=== PATIENT | female | born 1960 | race Caucasian/White ===

== ENCOUNTER 2021-07-02 16:14 | Emergency (ER) | payer MEDICAID, SELFPAY ==
--- NOTE | ~2021-07-02 | XR_ITS ---
EXAMINATION: XR WRIST, LEFT CLINICAL INFORMATION: Postreduction COMPARISON: Images earlier this evening TECHNIQUE: PA, lateral, and oblique views of the left wrist. FINDINGS: Patient is now in a Splint which obscures fine bony detail however there is improved alignment to the previously noted impacted distal dorsal angulated radial fracture when compared to earlier this evening. The amount of distal dorsal angulation has significantly improved. Ulnar styloid fracture is noted. XR/XR wrist LT 2V IMPRESSION: Significantly improved angulation to the comminuted distal radial fracture with mild placed on the styloid fracture noted.
--- NOTE | ~2021-07-02 | XR_ITS ---
EXAMINATION: XR WRIST, LEFT CLINICAL INFORMATION: Fall with left wrist swelling and tenderness COMPARISON: None TECHNIQUE: PA, lateral, and oblique views of the left wrist. FINDINGS: Comminuted impacted distal radial fracture is seen likely with a subtle intra-articular extension. There is distal dorsal angulation to this fracture. Carpal bones grossly intact. Subtle nondisplaced ulnar styloid fracture would be difficult to exclude on these obliquities. Associated soft tissue swelling. XR/XR wrist LT min 3V IMPRESSION: Comminuted impacted distal dorsal angulated distal radial metaphyseal fracture. Subtle intra-articular extension would be difficult to exclude on these obliquities.
[2021-07-02 16:42] VITALS: BP 133/66; PULSE 61; RESP 18; TEMP 36.6; O2SAT 97; BMI 37.0
[2021-07-02] MEDS: oxyCODONE HCl Immed Release 5 MG TABLET PO (17:19)
[2021-07-02] MEDS: Acetaminophen 325 MG TABLET 975 MG PO (17:19)
[2021-07-02] MEDS: Lidocaine HCl 2 % MPF 5 ML VIAL 10 ML INFILTRATI (17:47)
--- NOTE | 2021-07-02 17:48 | ED.FALL ---
HPI - Fall General Chief Complaint: Fall Stated Complaint: fall Time Seen by Provider: 07/02/21 16:47 Source: patient Mode of arrival: ambulatory Limitations: language barrier (The patient speaks Macedonian but her 1st language is [place]ovan, she was able to give a history and her [id number]'s also here who speaks Macedonian) History of Present Illness HPI Narrative: 60-year-old female who presents emergency department for evaluation of a trip and fall on outstretched left arm. The patient states that she tripped and fell forward injuring her left arm. She denied any other injury. She is currently complaining of severe pain in her left wrist, the pain is a constant sharp dull pain which is 10/10. Related Data Allergies Allergy/AdvReac Type Severity Reaction Status Date / Time apple [APPLE] Allergy Severe ANAPHYLAXIS Verified 07/02/21 17:18 [place] And Derivatives Allergy Severe ANAPHYLAXIS Verified 07/02/21 17:18 [CITRUS AND DERIVATIVES] fructose [FRUCTOSE] Allergy Severe ANAPHYLAXIS Verified 07/02/21 17:18 Penicillins [PENICILLINS] Allergy Intermediate RASH Verified 07/02/21 17:18 tuberculin, purified protein Allergy Intermediate RASH,BLISTE Verified 07/02/21 17:18 deriva RS [TUBERCULIN,PURIF.PROT.DERIV.] penicillin V Allergy Unknown Rash Verified 07/02/21 17:18 TB test Allergy Unknown Swelling Uncoded 07/02/21 17:18 Review of Systems Review of Systems: Yes all other systems are reviewed and are negative [facility] Past Medical History [facility] Narrative: Social history: Patient denies tobacco use. She denies alcohol use. She denies drug use. Medical History Hemorrhoids Hypercholesteremia Hypertension Surgical History H/O: hysterectomy Social History Social History Advance Directives: No Advance Directives Information Provided: No Physical Exam Vital Signs: Vital Signs: Last Vital Signs Temp 98 F 07/02/21 16:42 Pulse 61 07/02/21 16:42 Resp 18 07/02/21 16:42 BP 133/66 07/02/21 16:42 Pulse Ox 97 07/02/21 16:42 Body Mass Index 37.0 Const: General: cooperative, healthy appearing and other (In distress secondary to left wrist pain) Orientation/consciousness: oriented to person and oriented to place HENMT: Head: Yes normal to inspection, Yes normocephalic and Yes atraumatic Eyes: General: appearance normal, both eyes and all related structures Chest: Chest palpation & inspection: normal inspection of the chest and normal palpation of entire chest wall Cardio: Rate: regular rate Rhythm: regular rhythm Heart sounds: S1 normal heart sound present, S2 normal heart sound present and no murmurs GI: Inspection: Yes normal to inspection Palpation (GI): Soft to palpation and nontender Auscultation: normal bowel sounds Back/Spine/Pelvis: Other: No tenderness Skin: General skin exam: no rashes or lesions noted Neuro: General: oriented to person and oriented to place Cranial nerves: Yes CN's II-XII intact bilaterally Extrem: Other: Patient has an obvious deformity and soft tissue swelling with ecchymosis of the left wrist, the patient has normal light touch, good capillary refill, she has minimal movement of her finger secondary to pain Psych: Appearance: grossly normal Course Course Course Narrative: 60-year-old female who presents emergency room for evaluation of a fall on an outstretched left wrist with obvious deformity of the wrist. Patient had no other findings on her examination. The x-ray does reveal a comminuted impacted distal dorsal angulated distal radial fracture. I did discuss the patient's presentation with the orthopedic physician child welfare assistant, Celia Vivar. She was able to view the films and recommended that the fracture be reduced. At the end of my shift, the patient's care was turned over to my colleague, Dr. Flanagan who will reduce the fracture. Discharge Plan Discharge Clinical Impression: Distal radial fracture Qualifiers: Encounter type: initial encounter Fracture type: closed Laterality: left Patient Disposition: Home, Self-Care Instructions: Wrist Fracture in Adults (ED), Splint Care (ED) Additional Instructions: You have a broken bone of your wrist (comminuted fracture of the left distal radius). This was reduced in the emergency department in your placed in a splint. Keep the splint on until you are re-evaluated by the orthopedic group. Take extra-strength Tylenol 500 mg pills, 2 pills every 4-6 hours as needed for pain. For pain not relieved by Tylenol take oxycodone 5 mg pills, 1 pill every 4-6 hours as needed for pain. This medication can be addicting, if your concerned about addiction, ask that a pharmacist for less pills. This medication will make you sleepy do not drive or work while taking this medication. This medication can make you confused and constipated. Call the orthopedic group to make a follow-up appointment within 1 week Please return to the emergency department if your symptoms get worse or if you develop any symptoms that are concerning to you. Referrals: Nino Melchor MD [Physician] - 1 week
[2021-07-02 18:13] VITALS: RESP 17
[2021-07-02] MEDS: Morphine Sulfate 4 MG/ML CARTRIDGE IM (18:13)
--- NOTE | 2021-07-02 19:08 | ED.FALL ---
HPI - Fall General Chief Complaint: Fall Stated Complaint: fall Time Seen by Provider: 07/02/21 16:47 Source: patient Mode of arrival: ambulatory Related Data Previous Rx's Medication Instructions Recorded oxycodone 5 mg tablet 5 mg PO Q4H PRN #14 tab 07/02/21 Allergies Allergy/AdvReac Type Severity Reaction Status Date / Time apple [APPLE] Allergy Severe ANAPHYLAXIS Verified 07/02/21 17:18 [place] And Derivatives Allergy Severe ANAPHYLAXIS Verified 07/02/21 17:18 [CITRUS AND DERIVATIVES] fructose [FRUCTOSE] Allergy Severe ANAPHYLAXIS Verified 07/02/21 17:18 Penicillins [PENICILLINS] Allergy Intermediate RASH Verified 07/02/21 17:18 tuberculin, purified protein Allergy Intermediate RASH,BLISTE Verified 07/02/21 17:18 deriva RS [TUBERCULIN,PURIF.PROT.DERIV.] penicillin V Allergy Unknown Rash Verified 07/02/21 17:18 TB test Allergy Unknown Swelling Uncoded 07/02/21 17:18 PMFSH Past Medical History Medical History Hemorrhoids Hypercholesteremia Hypertension Surgical History H/O: hysterectomy Social History Social History Advance Directives: No Advance Directives Information Provided: No Physical Exam Vital Signs: Vital Signs: Last Vital Signs Temp 98 F 07/02/21 16:42 Pulse 61 07/02/21 16:42 Resp 17 07/02/21 18:13 BP 133/66 07/02/21 16:42 Pulse Ox 97 07/02/21 16:42 Body Mass Index 37.0 Procedures Orthopedic Fracture Reduction Fracture #1: Time Out Performed: Yes Side: left Fracture Reduction Location: radius Analgesia: hematoma block Technique: finger traps Post Reduction X-rays Demonstrate: anatomical reduction Post-reduction neuro exam: intact Post-reduction vascular exam: intact Splint Applied: Yes Patient Tolerated Procedure: well Discharge Plan Discharge Clinical Impression: Distal radial fracture Qualifiers: Encounter type: initial encounter Fracture type: closed Fracture morphology: Colles' Laterality: left Qualified Code(s): S52.532A - Colles' fracture of left radius, initial encounter for closed fracture Patient Disposition: Home, Self-Care Instructions: Wrist Fracture in Adults (ED), Splint Care (ED) Additional Instructions: You have a broken bone of your wrist (comminuted fracture of the left distal radius). This was reduced in the emergency department in your placed in a splint. Keep the splint on until you are re-evaluated by the orthopedic group. Take extra-strength Tylenol 500 mg pills, 2 pills every 4-6 hours as needed for pain. For pain not relieved by Tylenol take oxycodone 5 mg pills, 1 pill every 4-6 hours as needed for pain. This medication can be addicting, if your concerned about addiction, ask that a pharmacist for less pills. This medication will make you sleepy do not drive or work while taking this medication. This medication can make you confused and constipated. Call the orthopedic group to make a follow-up appointment within 1 week Please return to the emergency department if your symptoms get worse or if you develop any symptoms that are concerning to you. Prescriptions: New oxycodone 5 mg tablet 5 mg PO Q4H PRN (Reason: pain) Qty: 14 RF: 0 Referrals: Nino Melchor MD [Physician] - 1 week
[2021-07-02 19:19] VITALS: BP 166/79; PULSE 85; RESP 17; O2SAT 96
== END 2021-07-02 19:23 | disposition home or self-care (01) ==
PROVIDERS: Emergency Provider Internal Medicine; PCP Internal Medicine
DX: S52.532A Colles' fracture of left radius, initial encounter for closed fracture (principal); M79.602 Pain in left arm; W01.0XXA Fall on same level from slipping, tripping and stumbling without subsequent striking against object, initial encounter; Y93.9 Activity, unspecified; Y92.9 Unspecified place or not applicable; Y99.9 Unspecified external cause status; Z79.899 Other long term (current) drug therapy
CPT/HCPCS: 29105; 73100; 73110; 96372; 99284; J2270

== ENCOUNTER → 2021-07-05 13:03 | Outpatient (BNVA) | payer MEDICAID, SELFPAY | PROVIDERS: PCP Internal Medicine; Visit Provider Physician Assistant | DX: S52.502A Unspecified fracture of the lower end of left radius, initial encounter for closed fracture (principal); W01.0XXA Fall on same level from slipping, tripping and stumbling without subsequent striking against object, initial encounter; Y93.01 Activity, walking, marching and hiking; Y92.9 Unspecified place or not applicable; Y99.8 Other external cause status; I10 Essential (primary) hypertension; E78.00 Pure hypercholesterolemia, unspecified; Z91.02 Food additives allergy status; Z88.0 Allergy status to penicillin; Z88.8 Allergy status to other drugs, medicaments and biological substances; Z91.018 Allergy to other foods | CPT/HCPCS: 99202 ==

== ENCOUNTER 2021-07-06 07:23 | Day surgery (SDC) | payer MEDICAID, SELFPAY ==
[2021-07-06] VITALS (8 sets, daily range): BP systolic 145–173; BP diastolic 71–80; PULSE 74–88; RESP 17–18; TEMP 36.1–36.5; O2SAT 92–98; BMI 37.0
--- NOTE | ~2021-07-06 | FL_ITS ---
EXAMINATION: XR FLUOROSCOPY WITH IMAGES CLINICAL INFORMATION: Fracture distal radius COMPARISON: Previous x-ray 07/02/2021 TECHNIQUE: Fluoroscopy performed by Piyush Fluoroscopy time: 50 seconds DAP: [id number] Images: 4 FINDINGS: Fluoroscopy guidance was provided for ORIF of left distal radius fracture. There is a volar plate and screws transfixing the fracture with improved anatomic alignment. FL/FL guidance in OR IMPRESSION: Fluoroscopic guidance for ORIF of left distal radius fracture.
--- NOTE | 2021-07-06 08:23 | HO.ANESPROP2 ---
HPI - Anesthesia Eval Consult details Narrative: 60-year-old obese female presenting for ORIF distal radius fracture PMFSH Active Problems Active Problems: All Active Problems (Updated 07/05/21 @ 20:59 by Henry Vivar PA-C) Distal radius fracture, left (Acute) Past Medical History Medical History Hemorrhoids Hypercholesteremia Hypertension Family History Family history of problems with anesthesia: No Surgical History Surgical History H/O: hysterectomy History of Problems with Anesthesia: No Social History Social History Alcohol intake: never Patient Tobacco Use Status: Never used Tobacco Use of substances other than those prescribed or required for medical reasons: No Have you been hit, kicked, punched, or otherwise hurt by someone within the past year? If so, by whom?: No Are you DNR?: No Advance Directives: No Advance Directives Information Provided: Yes Current occupation: right handed Meds Allergies Allergy/AdvReac Type Severity Reaction Status Date / Time apple [APPLE] Allergy Severe ANAPHYLAXIS Verified 07/06/21 07:56 [place] And Derivatives Allergy Severe ANAPHYLAXIS Verified 07/06/21 07:56 [CITRUS AND DERIVATIVES] fructose [FRUCTOSE] Allergy Severe ANAPHYLAXIS Verified 07/06/21 07:56 Penicillins [PENICILLINS] Allergy Intermediate RASH Verified 07/06/21 07:56 tuberculin, purified protein Allergy Intermediate RASH,BLISTE Verified 07/06/21 07:56 deriva RS [TUBERCULIN,PURIF.PROT.DERIV.] penicillin V Allergy Unknown Rash Verified 07/06/21 07:56 TB test Allergy Unknown Swelling Uncoded 07/06/21 07:56 Exam Exam Date and Time: July 06, [id number] Height,Weight and Vital Signs: Height 5 ft Weight 190 lb Last Vital Signs Temp 97.7 F 07/06/21 08:10 Pulse 77 07/06/21 08:10 Resp 18 07/06/21 08:10 BP 173/78 H 07/06/21 08:10 Pulse Ox 94 07/06/21 08:10 Airway Mallampati Class: III TM Dist: >3cm Neck ROM: Full Loose/Missing/Broken Teeth: No Assessment and Plan Assessment Anesthesia Assessment: Anesthesia Plan Discussed and Chart Reviewed Final Anesthetic Review Family History of Problems with Anesthesia: No History of Problems with Anesthesia: No NPO: Yes ASA Class: III Final Preanesthetic Review: No Changes in Pt Med Stat, Meds/Allgs Chart Reviewed, Consent Obtained/Reviewed and Anes Risks/Benef Reviewed Patient Risk: Intermediate Procedure Risk: Low Anesthetic Plan Anesthetic Plan: GA and Regional Block Disposition: Standard PACU
[2021-07-06] MEDS: Lactated Ringers 1,000 ML 50 ML IVCONT (08:30)
--- NOTE | 2021-07-06 10:00 | P.HPSUR_ITS ---
Pre-Procedural Eval Section A Date of Service: 07/06/21 The patient is an INPATIENT: No Changes since office visit: No Cold of Flu in the past 2 weeks, No New Medical Problems, No Changes in Medication and No Patient answered all questions The History & Physical has been completed within 30 days and I have reviewed it.: Yes Section B Chief Complaint: radial fx Allergies: Allergies Allergy/AdvReac Type Severity Reaction Status Date / Time apple [APPLE] Allergy Severe ANAPHYLAXIS Verified 07/06/21 07:56 [place] And Derivatives Allergy Severe ANAPHYLAXIS Verified 07/06/21 07:56 [CITRUS AND DERIVATIVES] fructose [FRUCTOSE] Allergy Severe ANAPHYLAXIS Verified 07/06/21 07:56 Penicillins [PENICILLINS] Allergy Intermediate RASH Verified 07/06/21 07:56 tuberculin, purified protein Allergy Intermediate RASH,BLISTE Verified 07/06/21 07:56 deriva RS [TUBERCULIN,PURIF.PROT.DERIV.] penicillin V Allergy Unknown Rash Verified 07/06/21 07:56 TB test Allergy Unknown Swelling Uncoded 07/06/21 07:56 Plan I have reviewed the history and physical and performed a pertinent physical examination on my patient. No changes have occurred unless specified.
--- NOTE | 2021-07-06 10:00 | P.OP_ITS ---
Operative Note Operative Note Date of Service: 07/06/21 Narrative: Operative Note Narrative: Preop diagnosis: 1. Left Distal radius fracture Postop diagnosis: Same Procedure: Left Distal radius fracture open reduction internal fixation Surgeon: Samantha Bourgeois MD Anesthesia: Mac plus regional block Findings: [ ] Implants: A 3 hole Accu Med volar locking plate, with [ ] 2.3 mm locking pegs/screws, and 3 3.5 mm cortical screws Tourniquet time: [ ] minutes EBL: 5.0 ml Specimen: None Drains: None Complications: None Disposition: Brought to the recovery room in stable condition Plan: Follow-up in 10-14 days for wound check, suture removal and postop radiographs The patient will be placed in either a short-arm cast or a volar wrist splint. Encouraged no lifting of anything heavier than a cell phone. Please encourage active and passive range of motion of the digits. Follow-up at 4-5 weeks postop for repeat radiographs. Indications: The patient is a 60 year old woman with a left distal radius fracture . The risks and benefits of operative treatment, including but not limited to risk of damage to blood vessels, nerves, tendons, infection, recurrence, persistent pain or numbness, incomplete resolution of preoperative symptoms, or need for further surgery were discussed with the patient and they wished to proceed with surgery. Procedure: Once consent was obtained patient was brought back to the operating suite and placed in the operating table in a supine position. A regional block was performed by the anesthesia team. Perioperative antibiotics and anesthesia was administered by the anesthesia team. A tourniquet was applied to the proximal aspect of the left upper extremity and the limb was prepped and draped in a standard surgical fashion. The limb was elevated exsanguinated with Esmarch bandage and the tourniquet inflated to 250 mm of mercury for a total tourniquet time of [ ] minutes. The FluoroScan was used throughout the case to assess our reduction, and facilitate implant placement. A gentle closed reduction was 1st performed on the patient's [ ] distal radius fracture. Was assessed radiographically before proceeding with the reduction internal fixation. I then made an 8 cm longitudinal incision over the distal aspect of the flexor carpi radialis tendon. The incision was made through the skin to the subcutaneous tissue using a 15. Blade. Then carefully dissected down to flexor carpi radialis tendon she tenotomy scissors. The FCR tendon sheath was then incised longitudinally using tenotomy scissors under direct visualization. The FCR tendon was then retracted ulnarly. I then made a longitudinal incision in the volar forearm fascia through the floor of FCR tendon sheath using tenotomy scissors under direct visualization. I identified the interval between the radial artery and the flexor tendons. This interval was developed further with my index finger, releasing some of the muscular fibers of the flexor pollicis longus. A dull weatlander retractor was then placed. I then created an ulnarly based flap of the pronator quadratus by releasing the radial and distal edges using a 15. Blade. A Vincent elevator was used to elevate the pronator quadratus from the volar surface of the distal radius. This then revealed to us our distal radius fracture. An open reduction was then performed on our distal radius fracture. I then placed a short [narrow] 3 hole Accu Med volar locking plate on the volar surface of the distal radius. I placed a single K-wire through the distal aspect of the plate and into the distal radius. This was assessed using fluoroscopic images. I was satisfied with the placement of our plate. I then placed [ ] 2.3 mm locking screws/pegs in the distal aspect of the plate and distal radius by 1st drilling bicortically with a 1.8 mm drill bit, measuring with a depth gauge, and placing the appropriate length locking screws/pegs. The placement of our plate and screws was then assessed again using fluoroscopic images. The once satisfied with the placement of the volar locking plate and screws on the distal aspect of the distal radius, the plate was then reduced to the shaft of the radius. I then placed 3 3.5 mm cortical screws to the pro ximal aspect of the plate and into the shaft of the radius. This was done by 1st drilling bicortically with a 2.8 mm drill bit, measuring with a depth gauge, and placing the appropriate length screw. Final radiographs were then obtained. The DRUJ was assessed and found to be stable on exam. I was satisfied with our reduction and placement of all implants. At this point the wound was irrigated with normal saline. The pronator quadratus was reduced back over the volar locking plate using some 3-0 Vicryl suture material. The tourniquet was then deflated and hemostasis was obtained with a brief period of local pressure and bipolar monopolar electrocautery. The subcutaneous layer was then reapproximated using some 4-0 Vicryl suture, and the skin edges were reapproximated using some 5 0 Prolene suture. The wound was then infiltrated with some 1% lidocaine with epinephrine postop pain control. A sterile dressing and a short dorsal splint allowing for active flexion and extension of the digits was applied. The patient appears to have tolerated the procedure well and with no complications. All digits were well vascularized conclusion of the case.
--- NOTE | 2021-07-06 12:11 | P.OP_ITS ---
Operative Note Operative Note Date of Service: 07/06/21 Narrative: Operative Note Narrative: Preop diagnosis: 1. Left Distal radius fracture Postop diagnosis: 1. Left distal radius fracture, three-part intra-articular Procedure: 1. Distal radius fracture open reduction internal fixation, three-part intra-articular Surgeon: Samantha Bourgeois MD Anesthesia: Mac plus regional block Findings: Comminuted intra-articular left distal radius fracture Implants: A 3 hole standard Accu Med volar locking plate, with five 2.3 mm locking pegs/screws, and 3 3.5 mm cortical screws Tourniquet time: 51 minutes EBL: 5.0 ml Specimen: None Drains: None Complications: None Disposition: Brought to the recovery room in stable condition Plan: Follow-up in 10-14 days for wound check, suture removal and postop radiographs The patient will be placed in a volar wrist splint. Encourage no lifting of anything heavier than a cell phone. Please encourage active and passive range of motion of the digits. Follow-up at 4-5 weeks postop for repeat radiographs. Indications: The patient is a 60 year old woman with a displaced left distal radius fracture . The risks and benefits of operative treatment, including but not limited to risk of damage to blood vessels, nerves, tendons, infection, recurrence, persistent pain or numbness, incomplete resolution of preoperative symptoms, or need for further surgery were discussed with the patient and they wished to proceed with surgery. Procedure: Once consent was obtained patient was brought back to the operating suite and placed in the operating table in a supine position. A regional block was performed by the anesthesia team. Perioperative antibiotics and anesthesia was administered by the anesthesia team. A tourniquet was applied to the proximal aspect of the left upper extremity and the limb was prepped and draped in a standard surgical fashion. The limb was elevated exsanguinated with Esmarch bandage and the tourniquet inflated to 250 mm of mercury for a total tourniquet time of 51 minutes. The FluoroScan was used throughout the case to assess our reduction, and facilitate implant placement. I made an 8 cm longitudinal incision over the distal aspect of the flexor carpi radialis tendon. The incision was made through the skin to the subcutaneous tissue using a 15. Blade. Then carefully dissected down to flexor carpi radialis tendon she tenotomy scissors. The FCR tendon sheath was then incised longitudinally using tenotomy scissors under direct visualization. The FCR tendon was then retracted ulnarly. I then made a longitudinal incision in the volar forearm fascia through the floor of FCR tendon sheath using tenotomy scissors under direct visualization. I identified the interval between the radial artery and the flexor tendons. This interval was developed further with my index finger, releasing some of the muscular fibers of the flexor pollicis longus. A dull weatlander retractor was then placed. I then created an ulnarly based flap of the pronator quadratus by r eleasing the radial and distal edges using a 15. Blade. A Vincent elevator was used to elevate the pronator quadratus from the volar surface of the distal radius. This then revealed to us our distal radius fracture. The fracture was comminuted and intra-articular. One volar fragment of the volar cortical surface was actually on edge 90? with its usual position. An open reduction was then performed on our distal radius fracture. I then placed a short standard 3 hole Accu Med volar locking plate on the volar surface of the distal radius. I placed a single K-wire through the distal aspect of the plate and into the distal radius. This was assessed using fluoroscopic images. I was satisfied with the placement of our plate. I then placed five 2.3 mm locking screws/pegs in the distal aspect of the plate and distal radius by 1st drilling bicortically with a 1.8 mm drill bit, measuring with a depth gauge, and placing the appropriate length locking screws/pegs. The placement of our plate and screws was then assessed again using fluoroscopic images. The once satisfied with the placement of the volar locking plate and screws on the distal aspect of the distal radius, the plate was then reduced to the shaft of the radius. I then placed 3 3.5 mm cortical screws to the proximal aspect of the plate and into the shaft of the radius. This was done by 1st drilling bicortically with a 2.8 mm drill bit, measuring with a depth gauge, and placing the appropriate length screw. Final radiographs were then obtained. The DRUJ was assessed and found to be stable on exam. I was satisfied with our reduction and placement of all implants. At this point the wound was irrigated with normal saline. The pronator quadratus was reduced back over the volar locking plate using some 3-0 Vicryl suture material. The tourniquet was then deflated and hemostasis was obtained with a brief period of local pressure and bipolar monopolar electrocautery. The subcutaneous layer was then reapproximated using some 4-0 Vicryl suture, and the skin edges were reapproximated using some 5 0 Prolene suture. The wound was then infiltrated with some 0.5% plain Marcaine postop pain control. A sterile dressing and a short dorsal splint allowing for active flexion and extension of the digits was applied. The patient appears to have tolerated the procedure well and with no complications. All digits were well vascularized conclusion of the case.
== END 2021-07-06 13:30 | disposition home or self-care (01) ==
PROVIDERS: PCP Internal Medicine; Visit Provider Orthopaedic Surgery
PROC: (CPT 25609; principal; 2021-07-06 08:50)
DX: S52.572A Other intraarticular fracture of lower end of left radius, initial encounter for closed fracture (principal); W01.0XXA Fall on same level from slipping, tripping and stumbling without subsequent striking against object, initial encounter; Y93.01 Activity, walking, marching and hiking; Y92.9 Unspecified place or not applicable; Y99.8 Other external cause status; I10 Essential (primary) hypertension; Z88.0 Allergy status to penicillin
CPT/HCPCS: 25609; C1713; C1769; J0690; J2370; J2405; J3010

== ENCOUNTER 2021-07-17 11:49 | Outpatient (REF) | payer MEDICAID, SELFPAY ==
--- NOTE | ~2021-07-17 | XR_ITS ---
EXAMINATION: XR WRIST, LEFT CLINICAL INFORMATION: Left wrist pain. COMPARISON: Left wrist radiographs dated 07/02/2021. TECHNIQUE: PA, lateral, and oblique views of the left wrist. FINDINGS: Interval placement of a volar stabilization plate and fixation screws at the distal radius. No acute hardware fracture. No perihardware lucency to suggest loosening or infection. Distal radial fracture in near anatomic alignment. Circumferential soft tissue swelling. XR/XR wrist LT min 3V IMPRESSION: Distal radial ORIF without evidence of hardware complication. Distal radial fracture in near anatomic alignment.
== END 2021-07-17 11:50 | disposition home or self-care (01) ==
LOC: HO.HOSX 11:49
PROVIDERS: Visit Provider Orthopaedic Surgery
DX: S52.502D Unspecified fracture of the lower end of left radius, subsequent encounter for closed fracture with routine healing (principal); M67.40 Ganglion, unspecified site; X58.XXXD Exposure to other specified factors, subsequent encounter
CPT/HCPCS: 73110; 99212

== ENCOUNTER 2021-08-09 08:41 | Outpatient (REF) | payer MEDICAID, SELFPAY ==
--- NOTE | ~2021-08-09 | XR_ITS ---
EXAMINATION: XR WRIST, LEFT CLINICAL INFORMATION: Left wrist pain. COMPARISON: Most recent left wrist radiograph dated 07/17/2021. TECHNIQUE: PA, lateral, and oblique views of the left wrist. FINDINGS: Volar stabilization plate with fixation screws at the distal radius. Redemonstration of a distal radial fracture in unchanged anatomic alignment. Minimal new bone/callus formation. No osseous erosion. No abnormal soft tissue calcification. XR/XR wrist LT min 3V IMPRESSION: Distal radial fracture in unchanged anatomic alignment with minimal new bone/callus formation. Associated ORIF without evidence of hardware complication.
== END 2021-08-09 08:42 | disposition home or self-care (01) ==
LOC: HO.HOSX 08:41
PROVIDERS: Visit Provider Orthopaedic Surgery
DX: S52.502D Unspecified fracture of the lower end of left radius, subsequent encounter for closed fracture with routine healing (principal)
CPT/HCPCS: 73110; 99212

== ENCOUNTER 2021-11-22 09:19 | Outpatient (REF) | payer OTHER, SELFPAY ==
--- NOTE | 2021-11-22 09:22 | EMG_ITS ---
This is a 61-year-old woman who fractured her left wrist in June and had surgery. She now has persistent numbness in the fingers of the left hand. PHYSICAL EXAMINATION: On examination, she has well-healed scar in the left volar aspect of the wrist. She has decreased sensation in median nerve distribution. IMPRESSION: Carpal tunnel syndrome. Nerve conduction EMG study: Moderate to severe carpal tunnel syndrome on the left. Normal EMG of the left C5-T1 innervated muscles except for mild chronic reinnervative changes in the abductor pollicis brevis muscle from chronic median neuropathy. MD OBDULIA Obrien/DAYANA / [id number]
== END 2021-11-22 09:20 | disposition home or self-care (01) ==
LOC: HO.NEURO 09:19
PROVIDERS: Visit Provider Orthopaedic Surgery
DX: R20.0 Anesthesia of skin (principal); R20.2 Paresthesia of skin
CPT/HCPCS: 95885; 95910

== ENCOUNTER → 2021-11-29 12:16 | Outpatient (BNVA) | payer OTHER, SELFPAY | PROVIDERS: Visit Provider Physician Assistant | DX: G56.02 Carpal tunnel syndrome, left upper limb (principal) | CPT/HCPCS: 99212 ==

== ENCOUNTER 2021-12-11 10:56 | Day surgery (SDC) | payer OTHER, SELFPAY ==
[2021-12-11 12:05] VITALS: BMI 36.4
[2021-12-11 12:08] VITALS: BP 161/72; PULSE 68; RESP 16; TEMP 36.5; O2SAT 95
--- NOTE | 2021-12-11 14:34 | P.HPSUR_ITS ---
Pre-Procedural Eval Section A Date of Service: 12/11/21 The patient is an INPATIENT: No The History & Physical has been completed within 30 days and I have reviewed it.: Yes Section B Chief Complaint: Carpal Tunnel Syndrome Allergies: Allergies Allergy/AdvReac Type Severity Reaction Status Date / Time apple [APPLE] Allergy Severe ANAPHYLAXIS Verified 08/09/21 15:13 [place] And Derivatives Allergy Severe ANAPHYLAXIS Verified 08/09/21 15:13 [CITRUS AND DERIVATIVES] fructose [FRUCTOSE] Allergy Severe ANAPHYLAXIS Verified 08/09/21 15:13 Penicillins [PENICILLINS] Allergy Intermediate RASH Verified 08/09/21 15:13 tuberculin, purified protein Allergy Intermediate RASH,BLISTE Verified 08/09/21 15:13 deriva RS [TUBERCULIN,PURIF.PROT.DERIV.] penicillin V Allergy Unknown Rash Verified 08/09/21 15:13 TB test Allergy Unknown Swelling Uncoded 07/06/21 07:56 Plan I have reviewed the history and physical and performed a pertinent physical examination on my patient. No changes have occurred unless specified.
--- NOTE | 2021-12-11 14:35 | W.PM.OPN ---
Operative Note Operative Note Date of Service: 12/11/21 Narrative: Preop diagnosis: 1. Left Carpal tunnel syndrome Postop diagnosis: same Procedure: 1. left Carpal tunnel release Surgeon: Samantha Bourgeois MD Anesthesia: local block using 1% lidocaine with epinephrine Findings: Thickened transverse carpal ligament. EBL: Less than 5 mL Specimens: None Complications: None Disposition: Brought to recovery room in stable condition Plan: Follow-up for 10-14 days for wound check and suture removal Indications: The patient is 61 years old, with left carpal tunnel syndrome that has been unresponsive to nonoperative management. The risks and benefits of operative treatment including but not limited to risk of damage to blood vessels, nerves, tendons, infection, persistent pain, persistent symptoms, or possible need for additional surgery were discussed with the patient and the patient wishes to proceed with surgery. Procedure: Once consent was obtained a local block was performed using a combination of 1% lidocaine with epinephrine. The patient was then brought back to the operating suite and placed on the operative table in supine position. A tourniquet was applied to the proximal aspect of the left upper extremity and the limb was prepped and draped in a standard surgical fashion. Once assured that we had a good block, a 1.5 cm longitudinal incision was made centered over the carpal tunnel. The incision was made through the skin to the subcutaneous tissues using a #15 blade. Dissection was made down to the level of the transverse carpal ligament with care being taken to protect the palmar cutaneous nerve. Once the transverse carpal ligament was clearly visualized, a longitudinal incision was made in the transverse carpal ligament 1st using a #15 blade, then using tenotomy scissors under direct visualization. Care was taken to look for and protect the motor branch of the median nerve when seen in this area. Once satisfied with our carpal tunnel release the wound was copiously irrigated with normal saline and hemostasis was obtained with a brief period of local pressure. The skin edges were reapproximated with some 5.0 nylon suture material and a sterile dressing was applied. The patient appears to have tolerated the procedure well and with no complications. All digits were well vascularized at the conclusion of the case.
[2021-12-11 14:42] VITALS: BP 142/68; PULSE 67; RESP 16; TEMP 36.1; O2SAT 95
== END 2021-12-11 15:09 | disposition home or self-care (01) ==
PROVIDERS: Visit Provider Orthopaedic Surgery
PROC: (CPT 64721; principal; 2021-12-11 12:10)
DX: G56.02 Carpal tunnel syndrome, left upper limb (principal); M25.542 Pain in joints of left hand; R20.0 Anesthesia of skin; E78.00 Pure hypercholesterolemia, unspecified; I10 Essential (primary) hypertension; Z79.899 Other long term (current) drug therapy; Z88.0 Allergy status to penicillin
CPT/HCPCS: 64721

== ENCOUNTER → 2021-12-26 09:00 | Outpatient (BNVA) | payer OTHER, SELFPAY | PROVIDERS: Visit Provider Orthopaedic Surgery | DX: Z09 Encounter for follow-up examination after completed treatment for conditions other than malignant neoplasm (principal); Z86.69 Personal history of other diseases of the nervous system and sense organs | CPT/HCPCS: 99212 ==

== ENCOUNTER 2022-04-14 23:12 | Emergency (ER) | payer OTHER, SELFPAY ==
--- NOTE | ~2022-04-14 | CT_ITS ---
EXAMINATION: CT ABDOMEN AND PELVIS WITH CONTRAST CLINICAL INFORMATION: Upper abdominal pain COMPARISON: None TECHNIQUE: Multidetector volumetric images were obtained from the superior aspect of the liver through the pubic symphysis following administration 85 mL of Omnipaque 350 intravenous contrast. Sagittal and coronal reformatted images were obtained on the technologist's workstation. Oral contrast: No This CT examination was performed using dose optimization techniques as appropriate, variously including the following: *Automated exposure control *Adjustment of mA and/or kV according to patient size (this includes techniques or standardized protocols for targeted exams where dose is matched to indication/reason for exam; i.e. extremities or head) *Use of iterative reconstruction technique DLP: 715 mGy-cm FINDINGS: LUNG BASES: There is a 6 mm subpleural nodular opacity in the right lower lobe which assessment is somewhat limited due to respiratory motion artifact. LIVER, GALLBLADDER, AND BILIARY TREE: The liver is normal in size, shape, and attenuation. There is a 2.0 cm hypodensity in the medial segment containing what may represent internal septations and/or peripheral nodular enhancement. An additional similar-appearing lesion is present within hepatic segment 6 inferiorly measuring 1.7 cm. No intra or extrahepatic biliary ductal dilatation is present. Gallbladder unremarkable. PANCREAS: Unremarkable. SPLEEN: Unremarkable. ADRENAL GLANDS: Unremarkable. KIDNEYS AND URETERS: The kidneys are normal in size, shape, and attenuation. There is a 5 mm nonobstructing calculus in the posterior lateral cortex of the right kidney. No hydronephrosis or hydroureter. No perinephric stranding. BLADDER: Unremarkable. GASTROINTESTINAL TRACT: Scattered colonic diverticula. No evidence of diverticulitis. Normal appendix. Small sliding-type hiatal hernia. Stomach otherwise unremarkable. Small duodenal diverticulum. Otherwise normal small bowel. ABDOMINAL WALL: No significant hernia is appreciated. LYMPH NODES: Normal. VASCULAR: Aorta is atherosclerotic but normal caliber. Patent vascular structures. PELVIC VISCERA: Hysterectomy. Ovaries unremarkable. OSSEOUS STRUCTURES: No acute or suspicious osseous abnormalities. CT/CT abdomen pelvis w con IMPRESSION: * No acute findings within the abdomen or pelvis to explain the patient's symptomatology. * There are 2 hypodensities within the liver, medial segment and segment 6 which are nonspecific but imaging features most compatible with either complicated cysts or hemangioma. Consider nonemergent ultrasound to confirm. (The location of these lesions within the superficial parenchyma should render them these 2 interrogate by ultrasound) * Scattered colonic diverticula without evidence of diverticulitis. * Nonobstructive 5 mm calculus, right kidney. * Incidental 6 mm nodular opacity right lower lobe. Recommend follow-up CT chest in 6-12 months, per Fleischner Society guidelines.
[2022-04-14 23:20] VITALS: BP 190/90; PULSE 79; O2SAT 98
[2022-04-14 23:21] VITALS: BP 123/50; RESP 18; TEMP 36.6; O2SAT 94; BMI 37.8
--- NOTE | 2022-04-15 00:12 | ECG_ITS ---
Test Reason : ABD PAIN Blood Pressure : / mmHG Vent. Rate : 078 BPM Atrial Rate : 078 BPM P-R Int : 164 ms QRS Dur : 076 ms QT Int : 388 ms P-R-T Axes : 054 -12 -02 degrees QTc Int : 442 ms Normal sinus rhythm Minimal voltage criteria for LVH, may be normal variant ( R in aVL ) Borderline ECG When compared with ECG of 23-SEP-2018 23:21, No significant change was found Referred By: Armando Gaytan Electronically Signed By:Cesar Howard
--- NOTE | 2022-04-15 00:23 | ED.ABDPAIN ---
HPI - Abdominal Pain General Chief Complaint: Abdominal Pain Stated Complaint: ABDOMINAL PAIN Time Seen by Provider: 04/14/22 23:57 Source: patient Limitations: no limitations and language barrier (Relative translating [place] language) History of Present Illness HPI narrative: This is a 61-year-old female with history of hypertension, hypercholesterolemia, who had sudden onset of severe upper abdominal pain this evening with associated sweats, nausea and vomiting. The pain is somewhat better now. Patient was given acetaminophen 975 mg p.o.. She denies any chest pain, did feel little short of breath. She denies any constipation or diarrhea. She has had normal urination. Pain does go through to her back. She denies any alcohol use. She has not had any history gallstones or cholecystectomy. She had lasted around 430 so the onset of the pain was not right after she had eaten Related Data Home Medications Medication Instructions Recorded Confirmed atenolol 25 mg tablet tab PO 12/11/21 olmesartan 20 mg tablet 1 tab PO DAILY 12/11/21 12/11/21 rosuvastatin 20 mg tablet 1 tab PO BEDTIME 12/11/21 12/11/21 Previous Rx's Medication Instructions Recorded oxycodone 5 mg tablet 5 mg PO Q4H PRN pain #14 tabs 07/02/21 lidocaine 3 % topical cream 1 appl topical BID PRN pain #28.35 07/06/21 grams oxycodone-acetaminophen 5 mg-325 1 - 2 tab PO Q6H PRN pain #30 tabs 07/06/21 mg tablet ibuprofen 800 mg tablet 800 mg PO Q8H PRN pain 30 days #90 07/07/21 tabs hydrocodone 5 mg-acetaminophen 325 1 tab PO Q4-6H PRN pain #5 tabs 12/11/21 mg tablet ondansetron 4 mg disintegrating 4 mg PO Q6H PRN nausea and 04/15/22 tablet vomiting #8 tabs Allergies Allergy/AdvReac Type Severity Reaction Status Date / Time apple [APPLE] Allergy Severe ANAPHYLAXIS Verified 12/26/21 09:10 [place] [employer]ivatives Allergy Severe ANAPHYLAXIS Verified 12/26/21 09:10 [CITRUS AND DERIVATIVES] fructose [FRUCTOSE] Allergy Severe ANAPHYLAXIS Verified 12/26/21 09:10 Penicillins [PENICILLINS] Allergy Intermediate RASH Verified 12/26/21 09:10 tuberculin, purified protein Allergy Intermediate RASH,BLISTE Verified 12/26/21 09:10 deriva RS [TUBERCULIN,PURIF.PROT.DERIV.] penicillin V Allergy Unknown Rash Verified 12/26/21 09:10 TB test Allergy Unknown Swelling Uncoded 12/26/21 09:10 Review of Systems Review of Systems Yes all other systems are reviewed and are negative Constitutional: Reports as per HPI, Denies fever(s) and Reports other (Sweats) Eyes: Reports as per HPI and Reports no additional eye complaints Reports system reviewed and no additional complaints, except as documented, Reports as per HPI, Denies nasal congestion, Denies nasal discharge and Denies sore throat Cardiovascular: Reports as per HPI, Denies chest pain and Denies dyspnea Respiratory: Reports as per HPI, Denies cough and Denies dyspnea Gastrointestinal: Reports as per HPI, Reports abdominal pain, Denies diarrhea, Reports nausea and Reports vomiting Genitourinary: Reports as per HPI, Denies hematuria, Denies urinary frequency and Denies dysuria Musculoskeletal: Reports no additional musculoskeletal complaints and Denies numbness Skin/Breast: Reports as per HPI and Denies rash Reports as per HPI, Denies focal weakness and Denies numbness Psychiatric: Reports no additional psychiatric complaints and Reports as per HPI Endocrine: Reports no additional endocrine complaints and Reports as per HPI Hematologic/Lymphatic: Reports no additional hematologic/lymphatic complaints, Reports as per HPI and Reports other (No peripheral edema) [facility] Past Medical History Medical History Hemorrhoids Hypercholesteremia Hypertension Surgical History H/O: hysterectomy Social History Social History Alcohol intake: never Patient Tobacco Use Status: Never used Tobacco Advance Directives: No Advance Directives Information Provided: Yes Current occupation: right handed Physical Exam ED Vital Signs: Vital Signs - 24 hr 04/14/22 23:21 04/15/22 01:26 04/15/22 02:29 Temperature 97.9 F 98.3 F Pulse Rate 75 85 Respiratory Rate 18 13 20 Blood Pressure 123/50 L 99/53 L 104/46 L Pulse Oximetry 94 93 94 Oxygen Delivery Method Room Air Room Air Room Air [place] BMI result Body Mass Index 37.8 Const General: no acute distress Orientation/consciousness: patient oriented x3 HENCO Head: Yes normal to inspection General nose exam: Normal external nose present Mouth: moist mucous membranes Throat: Yes posterior oropharynx normal, Yes tonsils normal and Yes uvula midline Eyes Eyelids: Yes eyelids normal Conjunctivae: conjunctivae normal Pupils: Equal, round and reactive pupils present Neck Neck: Yes supple Resp Effort & Inspection: normal respiratory effort Auscultation: clear to auscultation bilaterally Cardio Rate: regular rate Rhythm: regular rhythm Heart sounds: S1 normal heart sound present, S2 normal heart sound present, no gallops, no murmurs and no rubs GI Other: Moderately obese Inspection: No distended Palpation (GI): Soft to palpation and Tenderness to palpation present (GI) in the epigastrum and in the RUQ Auscultation: normal bowel sounds Skin General skin exam: other (Warm and dry) Neuro General: patient oriented x3 and CN's II-XI intact bilaterally Cranial nerves: Yes Equal, round and reactive pupils present Extrem General: Yes no pedal edema Psych Affect: normal affect Attitude: cooperative MDM - Abdominal Pain MDM Narrative Medical decision making narrative: Patient with acute upper abdominal pain and vomiting. Patient improved with Zofran and normal saline, had been given acetaminophen and at home. Upon evaluation patient felt much better and felt comfortable going home. Patient's white blood cell count was mildly elevated but CT scan did not show any concerning findings with regard to her abdomen. Patient did have incidental findings of probable liver cysts, as well as a 6 mm opacity in her right lower lung, which she was advised to follow-up with her primary care physician about Lab Data Attestation: I reviewed the patient's lab results. Result diagrams: 04/15/22 00:26 04/15/22 01:23 Labs: Lab Results 04/15/22 04/15/22 04/15/22 Range/Units 00:26 00:26 01:23 WBC 12.8 H (4.8-10.8) X10*3/uL RBC 4.26 (4.20-5.50) X10*6/uL Hgb 12.3 (12.0-16.0) g/dl Hct 37.3 (37.0-47.0) % MCV 87.6 (80.0-98.0) fL MCH 28.9 (27.0-33.0) pg MCHC 33.0 (31.0-35.0) g/dl RDW 13.2 (11.0-16.0) % Plt Count 259 (160-400) X10*3/uL MPV 10.6 (9.4-12.3) fL Immature Gran % (Auto) 0.3 (0.0-0.4) % Neut % (Auto) 78.1 H (45-73) % Lymph % (Auto) 15.2 L (20-40) % Smith % (Auto) 5.6 (2-11) % Eos % (Auto) 0.5 (0-4) % Baso % (Auto) 0.3 (0-2) % Lymph # (Auto) 1.9 (1.2-4.9) X10*3/uL Smith # (Auto) 0.7 (0.1-1.2) X10*3/uL Eos # (Auto) 0.1 (0.0-0.4) X10*3/uL Baso # (Auto) 0.0 (0.0-0.2) X10*3/uL Abs Immat Gran (auto) 0.04 H (0.00-0.03) X10*3/uL Absolute Neuts (auto) 10.0 H (2.0-8.3) x10*3/uL Absolute Nucleated RBC 0.000 (0.0-0.012) X10*3/uL Nucleated RBC % (auto) 0.0 (0.0-0.2) /100WBC Sodium 139 (135-145) mmol/L Potassium 4.0 (3.3-5.1) mmol/L Chloride 106 (96-108) mmol/L Carbon Dioxide 25 (22-29) mmol/L Anion Gap 12 (12-20) BUN 25 H (9-16) mg/dL Creatinine 0.76 (0.5-1.4) mg/dL Estim Creat Clear Calc 84.9 Estimated GFR > 60 Random Glucose 137 H (60-115) mg/dL Calcium 8.9 (8.4-10.2) mg/dL Total Bilirubin 0.3 (0.0-1.0) mg/dL AST 17 (5-31) U/L ALT 24 (0-31) U/L Alkaline Phosphatase 41 (39-117) U/L Total Protein 6.7 (6.5-8.0) g/dL Albumin 4.1 (3.5-5.0) g/dL Lipase 25 (8-78) U/L Urine Color YELLOW Urine Appearance CLEAR Urine pH 6.5 (5.0-8.0) Ur Specific [place] 1.025 (1.005-1.025) Urine Protein NEG (NEG-TRACE) MG/DL Urine Glucose (UA) NEG (NEG) MG/DL Urine Ketones NEG (NEG) MG/DL Urine Blood NEG (NEG) Urine Nitrite NEG (NEG) Ur Leukocyte Esterase NEG (NEG) Imaging Data CT abdomen and pelvis with IV contrast: Radiologist's impression: IMPRESSION: *? No acute findings within the abdomen or pelvis to explain the patient's symptomatology. *? There are 2 hypodensities within the liver, medial segment and segment 6 which are nonspecific but imaging features most compatible with either complicated cysts or hemangioma. Consider nonemergent ultrasound to confirm. (The location of these lesions within the superficial parenchyma should render them these 2 interrogate by ultrasound) *? Scattered colonic diverticula without evidence of diverticulitis. *? Nonobstructive 5 mm calculus, right kidney. *? Incidental 6 mm nodular opacity right lower lobe. Recommend follow-up CT chest in 6-12 months, per Fleischner Society guidelines.? ? ECG Data Attestation: I personally reviewed and interpreted this ECG as follows: ECG interpretation date: 04/15/22 ECG interpretation time: 00:23 Interpretation: Sinus rhythm with a rate of 78. ST-elevation or depression. LVH. Discharge Plan Discharge Clinical Impression: Vomiting, Acute upper abdominal pain Patient Disposition: Home, Self-Care Instructions: Acute Nausea and Vomiting (ED), Abdominal Pain (ED) Additional Instructions: Use ondansetron as prescribed for pain. Follow-up with primary care physician. Return for any new or worsened symptoms such as recurrent abdominal pain, uncontrolled vomiting Prescriptions: New ondansetron 4 mg tablet,disintegrating 4 mg PO Q6H PRN (Reason: nausea and vomiting) Qty: 8 0RF No Action oxycodone 5 mg tablet 5 mg PO Q4H PRN (Reason: pain) Qty: 14 0RF oxycodone-acetaminophen 5-325 mg tablet 1 - 2 tab PO Q6H PRN (Reason: pain) Qty: 30 0RF lidocaine 3 % cream 1 appl topical BID PRN (Reason: pain) Qty: 28.35 0RF atenolol 25 mg tablet PO olmesartan 20 mg tablet 1 tab PO DAILY rosuvastatin 20 mg tablet 1 tab PO BEDTIME hydrocodone-acetaminophen 5-325 mg tablet 1 tab PO Q4-6H PRN (Reason: pain) Qty: 5 0RF ibuprofen 800 mg tablet 800 mg PO Q8H PRN (Reason: pain) 30 Days Qty: 90 3RF Interventions: ED Discharge Assessment Last Done: 04/15/22 03:55 Discharge Date/Time: 04/15/22 03:56
[2022-04-15 00:30] LABS: MANUAL DIFF FLAG NO
[2022-04-15] MEDS: ondansetron HCL 4 MG/2 ML VIAL IVPUSH (00:30)
[2022-04-15 00:31] LABS: Appearance Urine CLEAR; Basophils Percent Auto 0.3 % (0-2); Color Urine YELLOW; Eosinophils Absolute Auto 0.1 X10*3/uL (0.0-0.4); Eosinophils Percent Auto 0.5 % (0-4); Glucose Urine UA NEG (NEG); Hematocrit 37.3 % (37.0-47.0); Hemoglobin 12.3 g/dl (12.0-16.0); Imm Gran Abs Auto 0.04 X10*3/uL (0.00-0.03); Imm Gran Pct Auto 0.3 % (0.0-0.4); Leukocyte Esterase Urine NEG (NEG); Lymphocytes Absolute Auto 1.9 X10*3/uL (1.2-4.9); Lymphocytes Percent Auto 15.2 % (20-40); Mean Corpuscular Hemoglobin 28.9 pg (27.0-33.0); Mean Corpuscular Volume 87.6 fL (80.0-98.0); Mean Platelet Volume 10.6 fL (9.4-12.3); Monocytes Absolute Auto 0.7 X10*3/uL (0.1-1.2); Monocytes Percent Auto 5.6 % (2-11); Neutrophils Percent Auto 78.1 % (45-73); Nitrite Urine NEG (NEG); PH 6.5 (5.0-8.0); Platelet Count 259 X10*3/uL (160-400); Red Blood Count 4.26 X10*6/uL (4.20-5.50); Red Cell Distribution Width 13.2 % (11.0-16.0); Specific Gravity - Urine 1.025 (1.005-1.025); Urine Blood NEG (NEG); Urine Ketones NEG (NEG); Urine Protein NEG (NEG-TRACE); White Blood Count 12.8 X10*3/uL (4.8-10.8)
[2022-04-15] MEDS: 0.9 % Sodium Chloride 1,000 ML 999 ML IV (00:31)
[2022-04-15 01:26] VITALS: BP 99/53; PULSE 75; RESP 13; O2SAT 93
[2022-04-15 01:48] LABS: Alanine Aminotransferase 24 U/L (0-31); Albumin Level 4.1 g/dL (3.5-5.0); Alkaline Phosphatase 41 U/L (39-117); Anion Gap 12 (12-20); Aspartate Amino Transferase 17 U/L (5-31); Bilirubin Total 0.3 mg/dL (0.0-1.0); Blood Urea Nitrogen 25 mg/dL (9-16); Calcium 8.9 mg/dL (8.4-10.2); Carbon Dioxide 25 mmol/L (22-29); Chloride 106 mmol/L (96-108); Creatinine Clr Calc Pharmacy 84.9; Estimated Glomerular Filt Rate > 60; Glucose Random 137 mg/dL (60-115); Lipase 25 U/L (8-78); Sodium 139 mmol/L (135-145); Total Protein 6.7 g/dL (6.5-8.0)
[2022-04-15 02:29] VITALS: BP 104/46; PULSE 85; RESP 20; TEMP 36.8; O2SAT 94
[2022-04-15] MEDS: iohexoL 350 MG/ML 100 ML INFUS..BTL IV (02:30)
== END 2022-04-15 03:56 | disposition home or self-care (01) ==
PROVIDERS: Emergency Provider Emergency Medicine; PCP Internal Medicine
DX: R11.10 Vomiting, unspecified (principal); R10.10 Upper abdominal pain, unspecified; I10 Essential (primary) hypertension; E78.5 Hyperlipidemia, unspecified
CPT/HCPCS: 36415; 74177; 80053; 81003; 83690; 85025; 93005; 96361; 96374; 99284; J2405; Q9967

== ENCOUNTER → 2022-06-20 13:34 | Outpatient (BNVA) | payer OTHER, SELFPAY | PROVIDERS: PCP Internal Medicine; Visit Provider Orthopaedic Surgery | DX: G56.01 Carpal tunnel syndrome, right upper limb (principal) | CPT/HCPCS: 99212 ==

== ENCOUNTER 2022-08-13 11:23 | Day surgery (SDC) | payer OTHER, SELFPAY ==
[2022-08-13 11:58] VITALS: BMI 38.2
[2022-08-13 12:00] VITALS: BP 122/58; PULSE 66; RESP 16; TEMP 36.6; O2SAT 95
[2022-08-13 14:05] VITALS: BP 153/63; PULSE 66; RESP 18; TEMP 36.4; O2SAT 95
--- NOTE | 2022-08-13 14:28 | P.HPSUR_ITS ---
Pre-Procedural Eval Section A Date of Service: 08/13/22 The patient is an INPATIENT: No Changes since office visit: No Cold of Flu in the past 2 weeks, No New Medical Problems, No Changes in Medication and No Patient answered all questions The History & Physical has been completed within 30 days and I have reviewed it.: Yes Section B Chief Complaint: Carpal tunnel syndrome, right upper limb Allergies: Allergies Allergy/AdvReac Type Severity Reaction Status Date / Time apple [APPLE] Allergy Severe ANAPHYLAXIS Verified 08/13/22 11:55 [place] [employer] Derivatives Allergy Severe ANAPHYLAXIS Verified 08/13/22 11:55 [CITRUS AND DERIVATIVES] fructose [FRUCTOSE] Allergy Severe ANAPHYLAXIS Verified 08/13/22 11:55 Penicillins [PENICILLINS] Allergy Intermediate RASH Verified 08/13/22 11:55 tuberculin, purified protein Allergy Intermediate RASH,BLISTE Verified 08/13/22 11:55 deriva RS [TUBERCULIN,PURIF.PROT.DERIV.] penicillin V Allergy Unknown Rash Verified 08/13/22 11:55 TB test Allergy Unknown Swelling Uncoded 12/26/21 09:10 Plan I have reviewed the history and physical and performed a pertinent physical examination on my patient. No changes have occurred unless specified.
--- NOTE | 2022-08-13 14:28 | W.PM.OPN ---
Operative Note Operative Note Date of Service: 08/13/22 Narrative: Preop diagnosis: 1. right Carpal tunnel syndrome Postop diagnosis: same Procedure: 1. right Carpal tunnel release Surgeon: Samantha Bourgeois MD Anesthesia: local block using 1% lidocaine with epinephrine Findings: Thickened transverse carpal ligament. EBL: Less than 5 mL Specimens: None Complications: None Disposition: Brought to recovery room in stable condition Plan: Follow-up for 10-14 days for wound check and suture removal Indications: The patient is 62 years old, with right carpal tunnel syndrome that has been unresponsive to nonoperative management. The risks and benefits of operative treatment including but not limited to risk of damage to blood vessels, nerves, tendons, infection, persistent pain, persistent symptoms, or possible need for additional surgery were discussed with the patient and the patient wishes to proceed with surgery. Procedure: Once consent was obtained a local block was performed using a combination of 1% lidocaine with epinephrine. The patient was then brought back to the operating suite and placed on the operative table in supine position. A tourniquet was applied to the proximal aspect of the right upper extremity and the limb was prepped and draped in a standard surgical fashion. Once assured that we had a good block, a 2.0 cm longitudinal incision was made centered over the carpal tunnel. The incision was made through the skin to the subcutaneous tissues using a #15 blade. Dissection was made down to the level of the transverse carpal ligament with care being taken to protect the palmar cutaneous nerve. Once the transverse carpal ligament was clearly visualized, a longitudinal incision was made in the transverse carpal ligament 1st using a #15 blade, then using tenotomy scissors under direct visualization. Care was taken to look for and protect the motor branch of the median nerve when seen in this area. Once satisfied with our carpal tunnel release the wound was copiously irrigated with normal saline and hemostasis was obtained with a brief period of local pressure. The skin edges were reapproximated with some 5.0 nylon suture material and a sterile dressing was applied. The patient appears to have tolerated the procedure well and with no complications. All digits were well vascularized at the conclusion of the case.
== END 2022-08-13 14:38 | disposition home or self-care (01) ==
PROVIDERS: PCP Physician Assistant; Visit Provider Orthopaedic Surgery
PROC: (CPT 64721; principal; 2022-08-13 12:40)
DX: G56.01 Carpal tunnel syndrome, right upper limb (principal); R20.0 Anesthesia of skin; E78.00 Pure hypercholesterolemia, unspecified; I10 Essential (primary) hypertension; Z88.0 Allergy status to penicillin
CPT/HCPCS: 64721; J0171; J2795

== ENCOUNTER 2023-02-24 17:56 | Emergency (ER) | payer OTHER, SELFPAY ==
--- NOTE | ~2023-02-24 | US_ITS ---
EXAMINATION: US ABDOMEN COMPLETE CLINICAL INFORMATION: Epigastric pain. Question cholecystitis.. COMPARISON: 04/15/2022 CT TECHNIQUE: Real-time imaging of the abdominal viscera. FINDINGS: PANCREAS: The pancreatic head and body are unremarkable. The tail is obscured by gas. ABDOMINAL AORTA: The proximal, mid, and distal segments are normal in caliber. INFERIOR VENA CAVA: Visualized portions are normal. LIVER: The liver is normal in size. The liver contour is normal. There is diffuse increased liver parenchymal echogenicity, consistent with hepatic steatosis. Complex cyst in the right lobe of the liver measuring 4.2 x 2.9 x 3.1 cm. This has septation with no Doppler vascularity. There is no intrahepatic biliary duct dilatation seen. GALLBLADDER: There is a 0.3 cm probable gallbladder wall polyp noted. No definite calculus. No wall thickening or pericholecystic fluid. COMMON BILE DUCT: Normal in caliber measuring 0.6 cm in diameter. RIGHT KIDNEY: Normal. No hydronephrosis. No renal calculi or focal parenchymal lesions. The kidney measures 11 cm in maximum dimension. LEFT KIDNEY: Normal. No hydronephrosis. No renal calculi or focal parenchymal lesions. The kidney measures 11.8 cm in maximum dimension. SPLEEN: Normal. The spleen measures 12.1 cm in maximum dimension. FREE FLUID: None. US/US abdomen complete IMPRESSION: 1. No evidence of cholecystitis. Probable gallbladder wall polyp. 2. Hepatic steatosis. Complex cyst in the right lobe of the liver.
--- NOTE | ~2023-02-24 | XR_ITS ---
EXAMINATION: XR CHEST CLINICAL INFORMATION: Pneumonia COMPARISON: None available. TECHNIQUE: 2 views of the chest were obtained. FINDINGS: No significant abnormality is noted involving the heart, lungs, mediastinum, bony thorax or soft tissues. XR/XR chest 2V IMPRESSION: Unremarkable examination.
--- NOTE | ~2023-02-24 | CT_ITS ---
EXAMINATION: CT ABDOMEN AND PELVIS WITH CONTRAST CLINICAL INFORMATION: Upper abdominal pain COMPARISON: 04/15/2022 TECHNIQUE: Multidetector volumetric images were obtained from the superior aspect of the liver through the pubic symphysis following administration 85 mL of Omnipaque 350 intravenous contrast. Sagittal and coronal reformatted images were obtained on the technologist's workstation. Oral contrast: No This CT examination was performed using dose optimization techniques as appropriate, variously including the following: *Automated exposure control *Adjustment of mA and/or kV according to patient size (this includes techniques or standardized protocols for targeted exams where dose is matched to indication/reason for exam; i.e. extremities or head) *Use of iterative reconstruction technique DLP: 720 mGy-cm FINDINGS: LUNG BASES: The visualized lung bases are unremarkable. LIVER, GALLBLADDER, AND BILIARY TREE: Lobulated cystic lesion left lobe liver appears unchanged measuring up to 2.2 cm. Similar lesion right lobe segment 6 again noted. No new findings. Liver morphology normal. The gallbladder is unremarkable with no evidence of radiopaque gallstones, gallbladder wall thickening, or obvious pericholecystic inflammatory changes. No biliary ductal dilatation. PANCREAS: Unremarkable. SPLEEN: Unremarkable. ADRENAL GLANDS: Mild adenomatous changes both adrenal gland similar. No new findings. KIDNEYS AND URETERS: No hydronephrosis. Nonobstructing central right sided 5 mm calculus again noted. BLADDER: Unremarkable. GASTROINTESTINAL TRACT: The small and large bowel are unremarkable. The appendix is unremarkable. ABDOMINAL WALL: No significant hernia is appreciated. LYMPH NODES: Normal. VASCULAR: Unremarkable. PELVIC VISCERA: Appears to surgically absent. OSSEOUS STRUCTURES: Unremarkable. CT/CT abdomen pelvis w IV con IMPRESSION: No specific findings to explain patient's symptoms. Stable cystic lesions within the liver. No obstructing 5 mm central right renal stone. Fleischner guidelines were followed.
[2023-02-24 18:42] VITALS: BP 149/68; PULSE 109; RESP 22; TEMP 37.3; O2SAT 94; BMI 38.2
--- NOTE | 2023-02-24 18:44 | ECG_ITS ---
Test Reason : WEAKNESS PAIN ALL OVER Blood Pressure : / mmHG Vent. Rate : 096 BPM Atrial Rate : 096 BPM P-R Int : 148 ms QRS Dur : 078 ms QT Int : 324 ms P-R-T Axes : 063 -20 020 degrees QTc Int : 409 ms Normal sinus rhythm Moderate voltage criteria for LVH, may be normal variant ( R in aVL , [place] product ) Borderline ECG When compared with ECG of 15-APR-2022 00:22, No significant change was found Referred By: Santiago Reed Electronically Signed By:ARISTIDES FRY MD
--- NOTE | 2023-02-24 18:48 | ED_ITS ---
HPI - General Adult General Chief complaint: Nausea/Vomiting/Diarrhea <RAMAN Diana - Last Filed: 02/26/23 13:25> Stated complaint: fever/weakness/vomiting <RAMAN Diana - Last Filed: 02/26/23 13:25> Time Seen by Provider: 02/24/23 21:20 <RAMAN Diana - Last Filed: 02/26/23 13:25> Source: patient and family <Hernandez Mcdonald MD - Last Filed: 02/24/23 23:34> Mode of arrival: ambulatory <Hernandez Mcdonald MD - Last Filed: 02/24/23 23:34> Limitations: no limitations <Hernandez Mcdonald MD - Last Filed: 02/24/23 23:34> History of Present Illness HPI narrative: Patient sick for last 3 days after eating outside with nausea vomiting upper abdominal pain had low-grade fever also had palpitations and chest pain , was nauseated vomited once yesterday and normal bowel movement no history of same in the past no history of gallstones no cardiac history patient did not eat much pain gets worse after she eats <Hernandez Mcdonald MD - Last Filed: 02/24/23 23:34> Related Data Home medications: Home Medications Medication Instructions Recorded Confirmed atenolol 25 mg tablet tab PO 12/11/21 olmesartan 20 mg tablet 1 tab PO DAILY 12/11/21 12/11/21 rosuvastatin 20 mg tablet 1 tab PO BEDTIME 12/11/21 12/11/21 Previous Rx's Medication Instructions Recorded oxycodone 5 mg tablet 5 mg PO Q4H PRN pain #14 tabs 07/02/21 lidocaine 3 % topical cream 1 appl topical BID PRN pain #28.35 07/06/21 grams oxycodone-acetaminophen 5 mg-325 1 - 2 tab PO Q6H PRN pain #30 tabs 07/06/21 mg tablet ibuprofen 800 mg tablet 800 mg PO Q8H PRN pain 30 days #90 07/07/21 tabs ondansetron 4 mg disintegrating 4 mg PO Q6H PRN nausea and 04/15/22 tablet vomiting #8 tabs dicyclomine 20 mg tablet 20 mg PO QID PRN abdominal pain 02/24/23 #20 tabs <RAMAN Diana - Last Filed: 02/26/23 13:25> Allergies/adverse reactions: Allergies Allergy/AdvReac Type Severity Reaction Status Date / Time apple [APPLE] Allergy Severe ANAPHYLAXIS Verified 08/28/22 12:56 Neopit And Derivatives Allergy Severe ANAPHYLAXIS Verified 08/28/22 12:56 [CITRUS AND DERIVATIVES] fructose [FRUCTOSE] Allergy Severe ANAPHYLAXIS Verified 08/28/22 12:56 Penicillins [PENICILLINS] Allergy Intermediate RASH Verified 08/28/22 12:56 tuberculin, purified protein Allergy Intermediate RASH,BLISTE Verified 08/28/22 12:56 deriva RS [TUBERCULIN,PURIF.PROT.DERIV.] penicillin V Allergy Unknown Rash Verified 08/28/22 12:56 TB test Allergy Unknown Swelling Uncoded 08/28/22 12:56 <RAMAN Diana - Last Filed: 02/26/23 13:25> Review of Systems Review of Systems: Yes all other systems are reviewed and are negative <Hernandez Mcdonald MD - Last Filed: 02/24/23 23:34> [facility] Past Medical History Medical History: Medical History Hemorrhoids Hypercholesteremia Hypertension <RAMAN Diana - Last Filed: 02/26/23 13:25> Surgical History: Surgical History H/O: hysterectomy <RAMAN Diana - Last Filed: 02/26/23 13:25> Social History Social History: Social History Alcohol intake: never Patient Tobacco Use Status: Never used Tobacco Advance Directives: No Advance Directives Information Provided: No Current occupation: right handed <RAMAN Diana - Last Filed: 02/26/23 13:25> Physical Exam ED Vital Signs: Vital Signs - 24 hr 02/24/23 18:42 02/24/23 21:43 02/24/23 23:14 Temperature 99.1 F 98.4 F Pulse Rate 109 H 96 93 Respiratory Rate 22 H 17 18 Blood Pressure 149/68 H 123/69 121/63 Pulse Oximetry 94 93 93 Oxygen Delivery Method Room Air Room Air Room Air BMI result Body Mass Index 38.2 <RAMAN Diana - Last Filed: 02/26/23 13:25> Vital Signs - 24 hr 02/24/23 18:42 02/24/23 21:43 02/24/23 23:14 Temperature 99.1 F 98.4 F Pulse Rate 109 H 96 93 Respiratory Rate 22 H 17 18 Blood Pressure 149/68 H 123/69 121/63 Pulse Oximetry 94 93 93 Oxygen Delivery Method Room Air Room Air Room Air BMI result Body Mass Index 38.2 <Hernandez Mcdonald MD - Last Filed: 02/24/23 23:34> Appearance: Alert. Oriented X3. No acute distress. Eyes: No pallor or icterus HEENT: Pharynx normal. Oral Mucosa moist superficial hematoma on the forehead Neck: Normal inspection. Neck supple. CVS: Normal heart rate and rhythm. Pulses normal. Respiratory: No respiratory distress. Equal air entry bilateral, Abdomen: Soft tenderness in epigastric area and right upper quad no rebound tenderness or guarding, Bowel sounds are present, Skin: Skin warm and dry. Normal skin color. Normal skin turgor. Extremities: No lower extremity edema. No calf tenderness Neuro: Oriented X 3. No motor deficit. <Hernandez Mcdonald MD - Last Filed: 02/24/23 23:34> Course Course Course Narrative: RME: 62 yold female presents to the ED for epigastric and left sided chest pain with green bile emesis with fever of 102 at home. Symptoms since saturday. no symptoms. labs ultrasouns of abdomen, and chest xray also <RAMAN Diana - Last Filed: 02/26/23 13:25> Medications Administered Discontinued Medications Generic Name Dose Route Start Last Admin Trade Name Freq PRN Reason Stop Dose Admin Sodium Chloride 1,000 mls @ 999 mls/hr 02/24/23 21:35 02/24/23 21:55 Ns IV 02/24/23 22:35 999 mls/hr .Q1H1M ONE Administration Iohexol 100 ml 02/24/23 22:16 02/24/23 22:16 Iohexol 350 Mg/Ml 100 Ml Infus..Btl IV 02/24/23 22:17 85 ml ONCE ONE Administration Morphine Sulfate 4 mg 02/24/23 21:36 02/24/23 22:01 Morphine Sulfate 4 Mg/Ml Cartridge IVPUSH 02/24/23 21:37 4 mg ONCE ONE Administration Protocol Ondansetron HCl 4 mg 02/24/23 21:36 02/24/23 22:01 Ondansetron Hcl 4 Mg/2 Ml Vial IVPUSH 02/24/23 21:37 4 mg ONCE ONE Administration <RAMAN Diana - Last Filed: 02/26/23 13:25> Medications Administered Discontinued Medications Generic Name Dose Route Start Last Admin Trade Name Kirsten PRN Reason Stop Dose Admin Sodium Chloride 1,000 mls @ 999 mls/hr 02/24/23 21:35 02/24/23 21:55 Ns IV 02/24/23 22:35 999 mls/hr .Q1H1M ONE Administration Iohexol 100 ml 02/24/23 22:16 02/24/23 22:16 Iohexol 350 Mg/Ml 100 Ml Infus..Btl IV 02/24/23 22:17 85 ml ONCE ONE Administration Morphine Sulfate 4 mg 02/24/23 21:36 02/24/23 22:01 Morphine Sulfate 4 Mg/Ml Cartridge IVPUSH 02/24/23 21:37 4 mg ONCE ONE Administration Protocol Ondansetron HCl 4 mg 02/24/23 21:36 02/24/23 22:01 Ondansetron Hcl 4 Mg/2 Ml Vial IVPUSH 02/24/23 21:37 4 mg ONCE ONE Administration <Hernandez Mcdonald MD - Last Filed: 02/24/23 23:34> Medical Decision Making Medical Decision Making [facility] Narrative: Patient ultrasound of abdomen is negative for acute showed small polyp nonobstructive no signs of cholecystitis patient still have discomfort poor oral intake will get CT scan of the abdomen CT scan with IV contrast abdomen was negative for acute pathology patient taking p.o. fluids discharge patient home <Hernandez Mcdonald MD - Last Filed: 02/24/23 23:34> Lab Data [facility] Lab Attestation statement: I reviewed the patient's lab results. <Hernandez Mcdonald MD - Last Filed: 02/24/23 23:34> Result Diagrams: 02/24/23 19:31 02/24/23 19:31 <RAMAN Diana - Last Filed: 02/26/23 13:25> Labs: Lab Results 02/24/23 02/24/23 02/24/23 Range/Units 19:25 19:25 19:31 WBC 17.0 H (4.8-10.8) X10*3/uL RBC 4.78 (4.20-5.50) X10*6/uL Hgb 13.3 (12.0-16.0) g/dl Hct 40.3 (37.0-47.0) % MCV 84.3 (80.0-98.0) fL MCH 27.8 (27.0-33.0) pg MCHC 33.0 (31.0-35.0) g/dl RDW 13.9 (11.0-16.0) % Plt Count 126 L D (160-400) X10*3/uL MPV 12.2 (9.4-12.3) fL Immature Gran % (Auto) 0.4 (0.0-0.4) % Neut % (Auto) 78.2 H (45-73) % Lymph % (Auto) 9.4 L (20-40) % [place] % (Auto) 11.8 H (2-11) % Eos % (Auto) 0.0 (0-4) % Baso % (Auto) 0.2 (0-2) % Lymph # (Auto) 1.6 (1.2-4.9) X10*3/uL [place] # (Auto) 2.0 H (0.1-1.2) X10*3/uL Eos # (Auto) 0.0 (0.0-0.4) X10*3/uL Baso # (Auto) 0.0 (0.0-0.2) X10*3/uL Abs Immat Gran (auto) 0.06 H (0.00-0.03) X10*3/uL Absolute Neuts (auto) 13.3 H (2.0-8.3) x10*3/uL Absolute Nucleated RBC 0.000 (0.0-0.012) X10*3/uL Nucleated RBC % (auto) 0.0 (0.0-0.2) /100WBC Smear Tech's Comments VERIFIED PT (10.0-13.1) SEC INR (0.9-1.1) APTT (26.0-36.4) SEC Sodium (135-145) mmol/L Potassium (3.3-5.1) mmol/L Chloride (96-108) mmol/L Carbon Dioxide (22-29) mmol/L Anion Gap (12-20) BUN (9-16) mg/dL Creatinine (0.5-1.4) mg/dL Estim Creat Clear Calc Estimated GFR Random Glucose (60-115) mg/dL Calcium (8.4-10.2) mg/dL Total Bilirubin (0.0-1.0) mg/dL AST (5-31) U/L ALT (0-31) U/L Alkaline Phosphatase (39-117) U/L Troponin I High Sens (<3.5-17.0) ng/L B-Natriuretic Peptide (<100) pg/mL Total Protein (6.5-8.0) g/dL Albumin (3.5-5.0) g/dL Lipase (8-78) U/L Urine Color Dark Yellow Urine Appearance Cloudy Urine pH 5.5 (5.0-9.0) Ur Specific [place] 1.025 (1.005-1.025) Urine Protein 100 (2+) H (Neg-Trace) mg/dL Urine Glucose (UA) Negative (Negative) mg/dL Urine Ketones 15 (Negative) mg/dL Urine Blood Moderate (2+) H (Negative) Urine Nitrite Negative (Negative) Ur Leukocyte Esterase Negative (Negative) Urine RBC 6-10 H (0-2) /HPF Urine WBC 0-5 (0-5) /HPF Ur Squamous Epith Cells 6-10 (0-2) /HPF Urine Bacteria None Seen (None Seen) Hyaline Casts 0-2 (0-2) /LPF Influenza Type A (PCR) NEGATIVE (Negative) Influenza Type B (PCR) NEGATIVE (Negative) RSV RNA Qual (PCR) NEGATIVE (Negative) SARS-CoV-2 RNA (RT-PCR) NEGATIVE (Negative) 02/24/23 02/24/23 02/24/23 Range/Units 19:31 19:31 19:31 WBC (4.8-10.8) X10*3/uL RBC (4.20-5.50) X10*6/uL Hgb (12.0-16.0) g/dl Hct (37.0-47.0) % MCV (80.0-98.0) fL MCH (27.0-33.0) pg MCHC (31.0-35.0) g/dl RDW (11.0-16.0) % Plt Count (160-400) X10*3/uL MPV (9.4-12.3) fL Immature Gran % (Auto) (0.0-0.4) % Neut % (Auto) (45-73) % Lymph % (Auto) (20-40) % [place] % (Auto) (2-11) % Eos % (Auto) (0-4) % Baso % (Auto) (0-2) % Lymph # (Auto) (1.2-4.9) X10*3/uL [place] # (Auto) (0.1-1.2) X10*3/uL Eos # (Auto) (0.0-0.4) X10*3/uL Baso # (Auto) (0.0-0.2) X10*3/uL Abs Immat Gran (auto) (0.00-0.03) X10*3/uL Absolute Neuts (auto) (2.0-8.3) x10*3/uL Absolute Nucleated RBC (0.0-0.012) X10*3/uL Nucleated RBC % (auto) (0.0-0.2) /100WBC Smear Tech's Comments PT 14.4 H (10.0-13.1) SEC INR 1.2 H (0.9-1.1) APTT 29.6 (26.0-36.4) SEC Sodium 135 (135-145) mmol/L Potassium 3.7 (3.3-5.1) mmol/L Chloride 100 (96-108) mmol/L Carbon Dioxide 28 (22-29) mmol/L Anion Gap 11 L (12-20) BUN 18 H (9-16) mg/dL Creatinine 0.84 (0.5-1.4) mg/dL Estim Creat Clear Calc 70.6 Estimated GFR > 60 Random Glucose 155 H (60-115) mg/dL Calcium 9.3 (8.4-10.2) mg/dL Total Bilirubin 0.9 (0.0-1.0) mg/dL AST 37 H (5-31) U/L ALT 46 H (0-31) U/L Alkaline Phosphatase 38 L (39-117) U/L Troponin I High Sens 4.1 (<3.5-17.0) ng/L B-Natriuretic Peptide (<100) pg/mL Total Protein 7.4 (6.5-8.0) g/dL Albumin 4.3 (3.5-5.0) g/dL Lipase 20 (8-78) U/L Urine Color Urine Appearance Urine pH (5.0-9.0) Ur Specific [place] (1.005-1.025) Urine Protein (Neg-Trace) mg/dL Urine Glucose (UA) (Negative) mg/dL Urine Ketones (Negative) mg/dL Urine Blood (Negative) Urine Nitrite (Negative) Ur Leukocyte Esterase (Negative) Urine RBC (0-2) /HPF Urine WBC (0-5) /HPF Ur Squamous Epith Cells (0-2) /HPF Urine Bacteria (None Seen) Hyaline Casts (0-2) /LPF Influenza Type A (PCR) (Negative) Influenza Type B (PCR) (Negative) RSV RNA Qual (PCR) (Negative) SARS-CoV-2 RNA (RT-PCR) (Negative) 02/24/23 Range/Units 19:31 WBC (4.8-10.8) X10*3/uL RBC (4.20-5.50) X10*6/uL Hgb (12.0-16.0) g/dl Hct (37.0-47.0) % MCV (80.0-98.0) fL MCH (27.0-33.0) pg MCHC (31.0-35.0) g/dl RDW (11.0-16.0) % Plt Count (160-400) X10*3/uL MPV (9.4-12.3) fL Immature Gran % (Auto) (0.0-0.4) % Neut % (Auto) (45-73) % Lymph % (Auto) (20-40) % [place] % (Auto) (2-11) % Eos % (Auto) (0-4) % Baso % (Auto) (0-2) % Lymph # (Auto) (1.2-4.9) X10*3/uL [place] # (Auto) (0.1-1.2) X10*3/uL Eos # (Auto) (0.0-0.4) X10*3/uL Baso # (Auto) (0.0-0.2) X10*3/uL Abs Immat Gran (auto) (0.00-0.03) X10*3/uL Absolute Neuts (auto) (2.0-8.3) x10*3/uL Absolute Nucleated RBC (0.0-0.012) X10*3/uL Nucleated RBC % (auto) (0.0-0.2) /100WBC Smear Tech's Comments PT (10.0-13.1) SEC INR (0.9-1.1) APTT (26.0-36.4) SEC Sodium (135-145) mmol/L Potassium (3.3-5.1) mmol/L Chloride (96-108) mmol/L Carbon Dioxide (22-29) mmol/L Anion Gap (12-20) BUN (9-16) mg/dL Creatinine (0.5-1.4) mg/dL Estim Creat Clear Calc Estimated GFR Random Glucose (60-115) mg/dL Calcium (8.4-10.2) mg/dL Total Bilirubin (0.0-1.0) mg/dL AST (5-31) U/L ALT (0-31) U/L Alkaline Phosphatase (39-117) U/L Troponin I High Sens (<3.5-17.0) ng/L B-Natriuretic Peptide 11 (<100) pg/mL Total Protein (6.5-8.0) g/dL Albumin (3.5-5.0) g/dL Lipase (8-78) U/L Urine Color Urine Appearance Urine pH (5.0-9.0) Ur Specific [place] (1.005-1.025) Urine Protein (Neg-Trace) mg/dL Urine Glucose (UA) (Negative) mg/dL Urine Ketones (Negative) mg/dL Urine Blood (Negative) Urine Nitrite (Negative) Ur Leukocyte Esterase (Negative) Urine RBC (0-2) /HPF Urine WBC (0-5) /HPF Ur Squamous Epith Cells (0-2) /HPF Urine Bacteria (None Seen) Hyaline Casts (0-2) /LPF Influenza Type A (PCR) (Negative) Influenza Type B (PCR) (Negative) RSV RNA Qual (PCR) (Negative) SARS-CoV-2 RNA (RT-PCR) (Negative) <RAMAN Diana - Last Filed: 02/26/23 13:25> Lab Results 02/24/23 02/24/23 02/24/23 Range/Units 19:25 19:25 19:31 WBC 17.0 H (4.8-10.8) X10*3/uL RBC 4.78 (4.20-5.50) X10*6/uL Hgb 13.3 (12.0-16.0) g/dl Hct 40.3 (37.0-47.0) % MCV 84.3 (80.0-98.0) fL MCH 27.8 (27.0-33.0) pg MCHC 33.0 (31.0-35.0) g/dl RDW 13.9 (11.0-16.0) % Plt Count 126 L D (160-400) X10*3/uL MPV 12.2 (9.4-12.3) fL Immature Gran % (Auto) 0.4 (0.0-0.4) % Neut % (Auto) 78.2 H (45-73) % Lymph % (Auto) 9.4 L (20-40) % [place] % (Auto) 11.8 H (2-11) % Eos % (Auto) 0.0 (0-4) % Baso % (Auto) 0.2 (0-2) % Lymph # (Auto) 1.6 (1.2-4.9) X10*3/uL [place] # (Auto) 2.0 H (0.1-1.2) X10*3/uL Eos # (Auto) 0.0 (0.0-0.4) X10*3/uL Baso # (Auto) 0.0 (0.0-0.2) X10*3/uL Abs Immat Gran (auto) 0.06 H (0.00-0.03) X10*3/uL Absolute Neuts (auto) 13.3 H (2.0-8.3) x10*3/uL Absolute Nucleated RBC 0.000 (0.0-0.012) X10*3/uL Nucleated RBC % (auto) 0.0 (0.0-0.2) /100WBC Smear Tech's Comments VERIFIED PT (10.0-13.1) SEC INR (0.9-1.1) APTT (26.0-36.4) SEC Sodium (135-145) mmol/L Potassium (3.3-5.1) mmol/L Chloride (96-108) mmol/L Carbon Dioxide (22-29) mmol/L Anion Gap (12-20) BUN (9-16) mg/dL Creatinine (0.5-1.4) mg/dL Estim Creat Clear Calc Estimated GFR Random Glucose (60-115) mg/dL Calcium (8.4-10.2) mg/dL Total Bilirubin (0.0-1.0) mg/dL AST (5-31) U/L ALT (0-31) U/L Alkaline Phosphatase (39-117) U/L Troponin I High Sens (<3.5-17.0) ng/L B-Natriuretic Peptide (<100) pg/mL Total Protein (6.5-8.0) g/dL Albumin (3.5-5.0) g/dL Lipase (8-78) U/L Urine Color Dark Yellow Urine Appearance Cloudy Urine pH 5.5 (5.0-9.0) Ur Specific [place] 1.025 (1.005-1.025) Urine Protein 100 (2+) H (Neg-Trace) mg/dL Urine Glucose (UA) Negative (Negative) mg/dL Urine Ketones 15 (Negative) mg/dL Urine Blood Moderate (2+) H (Negative) Urine Nitrite Negative (Negative) Ur Leukocyte Esterase Negative (Negative) Urine RBC 6-10 H (0-2) /HPF Urine WBC 0-5 (0-5) /HPF Ur Squamous Epith Cells 6-10 (0-2) /HPF Urine Bacteria None Seen (None Seen) Hyaline Casts 0-2 (0-2) /LPF Influenza Type A (PCR) NEGATIVE (Negative) Influenza Type B (PCR) NEGATIVE (Negative) RSV RNA Qual (PCR) NEGATIVE (Negative) SARS-CoV-2 RNA (RT-PCR) NEGATIVE (Negative) 02/24/23 02/24/23 02/24/23 Range/Units 19:31 19:31 19:31 WBC (4.8-10.8) X10*3/uL RBC (4.20-5.50) X10*6/uL Hgb (12.0-16.0) g/dl Hct (37.0-47.0) % MCV (80.0-98.0) fL MCH (27.0-33.0) pg MCHC (31.0-35.0) g/dl RDW (11.0-16.0) % Plt Count (160-400) X10*3/uL MPV (9.4-12.3) fL Immature Gran % (Auto) (0.0-0.4) % Neut % (Auto) (45-73) % Lymph % (Auto) (20-40) % [place] % (Auto) (2-11) % Eos % (Auto) (0-4) % Baso % (Auto) (0-2) % Lymph # (Auto) (1.2-4.9) X10*3/uL [place] # (Auto) (0.1-1.2) X10*3/uL Eos # (Auto) (0.0-0.4) X10*3/uL Baso # (Auto) (0.0-0.2) X10*3/uL Abs Immat Gran (auto) (0.00-0.03) X10*3/uL Absolute Neuts (auto) (2.0-8.3) x10*3/uL Absolute Nucleated RBC (0.0-0.012) X10*3/uL Nucleated RBC % (auto) (0.0-0.2) /100WBC Smear Tech's Comments PT 14.4 H (10.0-13.1) SEC INR 1.2 H (0.9-1.1) APTT 29.6 (26.0-36.4) SEC Sodium 135 (135-145) mmol/L Potassium 3.7 (3.3-5.1) mmol/L Chloride 100 (96-108) mmol/L Carbon Dioxide 28 (22-29) mmol/L Anion Gap 11 L (12-20) BUN 18 H (9-16) mg/dL Creatinine 0.84 (0.5-1.4) mg/dL Estim Creat Clear Calc 70.6 Estimated GFR > 60 Random Glucose 155 H (60-115) mg/dL Calcium 9.3 (8.4-10.2) mg/dL Total Bilirubin 0.9 (0.0-1.0) mg/dL AST 37 H (5-31) U/L ALT 46 H (0-31) U/L Alkaline Phosphatase 38 L (39-117) U/L Troponin I High Sens 4.1 (<3.5-17.0) ng/L B-Natriuretic Peptide (<100) pg/mL Total Protein 7.4 (6.5-8.0) g/dL Albumin 4.3 (3.5-5.0) g/dL Lipase 20 (8-78) U/L Urine Color Urine Appearance Urine pH (5.0-9.0) Ur Specific [place] (1.005-1.025) Urine Protein (Neg-Trace) mg/dL Urine Glucose (UA) (Negative) mg/dL Urine Ketones (Negative) mg/dL Urine Blood (Negative) Urine Nitrite (Negative) Ur Leukocyte Esterase (Negative) Urine RBC (0-2) /HPF Urine WBC (0-5) /HPF Ur Squamous Epith Cells (0-2) /HPF Urine Bacteria (None Seen) Hyaline Casts (0-2) /LPF Influenza Type A (PCR) (Negative) Influenza Type B (PCR) (Negative) RSV RNA Qual (PCR) (Negative) SARS-CoV-2 RNA (RT-PCR) (Negative) 02/24/23 Range/Units 19:31 WBC (4.8-10.8) X10*3/uL RBC (4.20-5.50) X10*6/uL Hgb (12.0-16.0) g/dl Hct (37.0-47.0) % MCV (80.0-98.0) fL MCH (27.0-33.0) pg MCHC (31.0-35.0) g/dl RDW (11.0-16.0) % Plt Count (160-400) X10*3/uL MPV (9.4-12.3) fL Immature Gran % (Auto) (0.0-0.4) % Neut % (Auto) (45-73) % Lymph % (Auto) (20-40) % [place] % (Auto) (2-11) % Eos % (Auto) (0-4) % Baso % (Auto) (0-2) % Lymph # (Auto) (1.2-4.9) X10*3/uL [place] # (Auto) (0.1-1.2) X10*3/uL Eos # (Auto) (0.0-0.4) X10*3/uL Baso # (Auto) (0.0-0.2) X10*3/uL Abs Immat Gran (auto) (0.00-0.03) X10*3/uL Absolute Neuts (auto) (2.0-8.3) x10*3/uL Absolute Nucleated RBC (0.0-0.012) X10*3/uL Nucleated RBC % (auto) (0.0-0.2) /100WBC Smear Tech's Comments PT (10.0-13.1) SEC INR (0.9-1.1) APTT (26.0-36.4) SEC Sodium (135-145) mmol/L Potassium (3.3-5.1) mmol/L Chloride (96-108) mmol/L Carbon Dioxide (22-29) mmol/L Anion Gap (12-20) BUN (9-16) mg/dL Creatinine (0.5-1.4) mg/dL Estim Creat Clear Calc Estimated GFR Random Glucose (60-115) mg/dL Calcium (8.4-10.2) mg/dL Total Bilirubin (0.0-1.0) mg/dL AST (5-31) U/L ALT (0-31) U/L Alkaline Phosphatase (39-117) U/L Troponin I High Sens (<3.5-17.0) ng/L B-Natriuretic Peptide 11 (<100) pg/mL Total Protein (6.5-8.0) g/dL Albumin (3.5-5.0) g/dL Lipase (8-78) U/L Urine Color Urine Appearance Urine pH (5.0-9.0) Ur Specific [place] (1.005-1.025) Urine Protein (Neg-Trace) mg/dL Urine Glucose (UA) (Negative) mg/dL Urine Ketones (Negative) mg/dL Urine Blood (Negative) Urine Nitrite (Negative) Ur Leukocyte Esterase (Negative) Urine RBC (0-2) /HPF Urine WBC (0-5) /HPF Ur Squamous Epith Cells (0-2) /HPF Urine Bacteria (None Seen) Hyaline Casts (0-2) /LPF Influenza Type A (PCR) (Negative) Influenza Type B (PCR) (Negative) RSV RNA Qual (PCR) (Negative) SARS-CoV-2 RNA (RT-PCR) (Negative) <Hernandez Mcdonald MD - Last Filed: 02/24/23 23:34> Discharge Plan Discharge Clinical Impression: Gastroenteritis <RAMAN Diana - Last Filed: 02/26/23 13:25> Patient Disposition: Home, Self-Care <RAMAN Diana - Last Filed: 02/26/23 13:25> Instructions: Gastroenteritis (ED) <RAMAN Diana - Last Filed: 02/26/23 13:25> Additional Instructions: Drink plenty of fluid Medicine for abdominal spasm Follow with PCP if not better <RAMAN Diana - Last Filed: 02/26/23 13:25> Prescriptions: New dicyclomine 20 mg tablet 20 mg PO QID PRN (Reason: abdominal pain) Qty: 20 0RF No Action oxycodone 5 mg tablet 5 mg PO Q4H PRN (Reason: pain) Qty: 14 0RF oxycodone-acetaminophen 5-325 mg tablet 1 - 2 tab PO Q6H PRN (Reason: pain) Qty: 30 0RF lidocaine 3 % cream 1 appl topical BID PRN (Reason: pain) Qty: 28.35 0RF atenolol 25 mg tablet PO olmesartan 20 mg tablet 1 tab PO DAILY rosuvastatin 20 mg tablet 1 tab PO BEDTIME ondansetron 4 mg tablet,disintegrating 4 mg PO Q6H PRN (Reason: nausea and vomiting) Qty: 8 0RF ibuprofen 800 mg tablet 800 mg PO Q8H PRN (Reason: pain) 30 Days Qty: 90 3RF <RAMAN Diana - Last Filed: 02/26/23 13:25> Interventions: ED Discharge Assessment Last Done: 02/24/23 23:46 <RAMAN Diana - Last Filed: 02/26/23 13:25> Discharge Date/Time: 02/24/23 23:47 <RAMAN Diana - Last Filed: 02/26/23 13:25>
[2023-02-24 19:37] LABS: Basophils Percent Auto 0.2 % (0-2); Hematocrit 40.3 % (37.0-47.0); Hemoglobin 13.3 g/dl (12.0-16.0); Imm Gran Abs Auto 0.06 X10*3/uL (0.00-0.03); Imm Gran Pct Auto 0.4 % (0.0-0.4); Lymphocytes Absolute Auto 1.6 X10*3/uL (1.2-4.9); Lymphocytes Percent Auto 9.4 % (20-40); MANUAL DIFF FLAG SCAN; Mean Corpuscular Hemoglobin 27.8 pg (27.0-33.0); Mean Corpuscular Volume 84.3 fL (80.0-98.0); Mean Platelet Volume 12.2 fL (9.4-12.3); Monocytes Percent Auto 11.8 % (2-11); Neutrophils Absolute Auto 13.3 x10*3/uL (2.0-8.3); Neutrophils Percent Auto 78.2 % (45-73); Platelet Count 126 X10*3/uL (160-400); Red Blood Count 4.78 X10*6/uL (4.20-5.50); Red Cell Distribution Width 13.9 % (11.0-16.0); SCAN SMEAR FLAG 1
[2023-02-24 19:38] LABS: Appearance Urine Cloudy; Color Urine Dark Yellow; Glucose Urine UA Negative (Negative); Leukocyte Esterase Urine Negative (Negative); Nitrite Urine Negative (Negative); PH 5.5 (5.0-9.0); Specific Gravity - Urine 1.025 (1.005-1.025); UMIC TRIGGER UACC YES; Urine Blood Moderate (2+) (Negative); Urine Ketones 15 mg/dL (Negative); Urine Protein 100 (2+) mg/dL (Neg-Trace)
[2023-02-24 19:42] LABS: INTERNATIONAL NORM RATIO 1.2 (0.9-1.1); Prothrombin Time 14.4 SEC (10.0-13.1)
[2023-02-24 19:43] LABS: Bacteria Urine None Seen (None Seen); Hyaline Casts Urine 0-2 /LPF (0-2); WBC Urine 0-5 /HPF (0-5)
[2023-02-24 19:45] LABS: Partial Thromboplastin Time 29.6 SEC (26.0-36.4)
[2023-02-24 19:55] LABS: SLIDE REVIEW VERIFIED
[2023-02-24 19:58] LABS: Alanine Aminotransferase 46 U/L (0-31); Albumin Level 4.3 g/dL (3.5-5.0); Alkaline Phosphatase 38 U/L (39-117); Anion Gap 11 (12-20); Aspartate Amino Transferase 37 U/L (5-31); Bilirubin Total 0.9 mg/dL (0.0-1.0); Blood Urea Nitrogen 18 mg/dL (9-16); Calcium 9.3 mg/dL (8.4-10.2); Carbon Dioxide 28 mmol/L (22-29); Chloride 100 mmol/L (96-108); Creatinine Clr Calc Pharmacy 70.6; Estimated Glomerular Filt Rate > 60; Glucose Random 155 mg/dL (60-115); Lipase 20 U/L (8-78); Potassium 3.7 mmol/L (3.3-5.1); Sodium 135 mmol/L (135-145); Total Protein 7.4 g/dL (6.5-8.0)
[2023-02-24 20:01] LABS: B Type Natriuretic Peptide 11 pg/mL (<100)
[2023-02-24 20:03] LABS: Troponin-I High Sensitivity 4.1 ng/L (<3.5-17.0)
[2023-02-24 20:13] LABS: Influenza A PCR NEGATIVE (Negative); Influenza B PCR NEGATIVE (Negative); Resp Syncy Virus RNA Qual PCR NEGATIVE (Negative); SARS COV2 PCR INHOUSE NEGATIVE (Negative)
[2023-02-24 21:43] VITALS: BP 123/69; PULSE 96; RESP 17; TEMP 36.9; O2SAT 93
[2023-02-24] MEDS: 0.9 % Sodium Chloride 1,000 ML 999 ML IV (21:55)
[2023-02-24] MEDS: ondansetron HCL 4 MG/2 ML VIAL IVPUSH (22:01)
[2023-02-24] MEDS: Morphine Sulfate 4 MG/ML CARTRIDGE IVPUSH (22:01)
--- NOTE | 2023-02-24 22:06 | PC.NURSE ---
this rn placed iv pt tolerated well. pt medicated according to dec. pt daughter at bedside at this time. pt awaiting CT at this time
[2023-02-24] MEDS: iohexoL 350 MG/ML 100 ML INFUS..BTL IV (22:16)
--- NOTE | 2023-02-24 22:52 | MHC.EDTECH ---
P.O Challenge was tolerated well by pt. pt drank 2 cups of water without throwing up
[2023-02-24 23:14] VITALS: BP 121/63; PULSE 93; RESP 18; O2SAT 93
== END 2023-02-24 23:47 | disposition home or self-care (01) ==
PROVIDERS: Physician Assistant; Emergency Provider Internal Medicine
DX: J18.9 Pneumonia, unspecified organism (principal); K52.9 Noninfective gastroenteritis and colitis, unspecified; R10.13 Epigastric pain; R50.9 Fever, unspecified; R06.02 Shortness of breath; R11.2 Nausea with vomiting, unspecified; Z20.822 Contact with and (suspected) exposure to COVID-19; Z20.828 Contact with and (suspected) exposure to other viral communicable diseases; Z79.899 Other long term (current) drug therapy
CPT/HCPCS: 0241U; 71046; 74177; 76700; 80053; 81001; 83690; 83880; 84484; 85025; 85610; 85730; 93005; 96361; 96374; 96375; 99284; J2270; J2405; Q9967

== ENCOUNTER 2025-07-28 03:29 | Inpatient (IN) | payer OTHER, SELFPAY ==
[2025-07-28] VITALS (16 sets, daily range): BP systolic 131–174; BP diastolic 60–80; PULSE 77–112; RESP 18–28; TEMP 36.4–37.2; O2SAT 88–94; BMI 36.3
--- NOTE | ~2025-07-28 | CT_ITS ---
EXAMINATION: CT ANGIOGRAM CHEST CLINICAL INFORMATION: Hypoxia COMPARISON: None available. TECHNIQUE: Multiple axial images were obtained through the chest after the administration of 65 mL of Omnipaque 350 intravenous contrast. Extensive vascular post-processing including two-dimensional and three-dimensional reformatted images were created and reviewed on an independent workstation. SmartPrep technique. This CT examination was performed using dose optimization techniques as appropriate, variously including the following: *Automated exposure control *Adjustment of mA and/or kV according to patient size (this includes techniques or standardized protocols for targeted exams where dose is matched to indication/reason for exam; i.e. extremities or head) *Use of iterative reconstruction technique DLP: 367 mGy centimeter. FINDINGS: The main pulmonary artery, main pulmonary artery branches and subsegmental pulmonary artery branches are patent without gross intraluminal filling defects Multifocal patchy and confluent attenuation seen in the lower lung lobes and lingula. Peribronchial septal thickening. 4 mm calcified pulmonary nodule, right lower lung lobe. Bilateral apical lung scarring pronounced on the right lung apex. No gross pleural effusion or pneumothorax. Mild prominent lymph nodes in the subcarinal and perihilar. No pericardial effusion. No pneumomediastinum. No aneurysm or dissection, thoracic aorta. Calcified plaque in the inferior aortic arch. Calcified plaques in the LAD. Hiatal hernia, moderate size. Focal calcification right thyroid lobe. Multilevel spondylosis without acute fracture or listhesis. No acute fracture, clavicles or sternum. No acute rib fractures.. CT/CT angio chest PE protocol IMPRESSION: No acute pulmonary artery emboli. Multifocal acute airspace disease involving mostly the lower lung lobes and lingula. 4 mm granuloma, right lower lung lobe. Hiatal hernia, moderate volume. Fleischner guidelines were followed. Electronically signed by: Elijah Clark MD 07/28/2025 08:27 AM EDT
--- NOTE | ~2025-07-28 | XR_ITS ---
CLINICAL HISTORY: dyspnea 1 view chest x-ray Comparison: CR/SR - XR CHEST 2 VIEWS - 02/24/23 19:05 EDT Findings: The lungs are clear. The heart size and pulmonary blood flow. Within normal limits. Cardiac monitoring leads overlie the chest. No acute fracture. IMPRESSION: 1. No acute findings. This document has been electronically signed by: Jericho Piña MD on 07/28/2025 04:59:25
--- NOTE | 2025-07-28 03:36 | ECG_ITS ---
Test Reason : CHEST PAIN Blood Pressure : */* mmHG Vent. Rate : 106 BPM Atrial Rate : 106 BPM P-R Int : 150 ms QRS Dur : 74 ms QT Int : 330 ms P-R-T Axes : 73 -6 57 degrees QTcB Int : 438 ms Sinus tachycardia Otherwise normal ECG When compared with ECG of 24-Feb-2023 19:16, Nonspecific T wave abnormality no longer evident in Inferior leads Referred By: Generic ED Physician Electronically Signed By: RICHARD SOLORIO
[2025-07-28] MEDS: Albuterol Sulfate 2.5 MG, Albuterol/Iprat 2.5/0.5MG 3 ML 3 ML INHALE (04:02)
[2025-07-28 04:07] LABS: MANUAL DIFF FLAG NO
[2025-07-28 04:14] LABS: VBG HCO3 23 mmol/L (22-26); VBG O2 % Saturation 90.0 %
[2025-07-28] MEDS: Lactated Ringers 1,000 ML 999 ML IV (04:24)
[2025-07-28 04:25] LABS: Alanine Aminotransferase 23 U/L (0-31); Albumin Level 4.7 g/dL (3.5-5.0); Alkaline Phosphatase 49 U/L (39-117); Anion Gap 15 (12-20); Aspartate Amino Transferase 24 U/L (5-31); Blood Urea Nitrogen 11 mg/dL (9-16); Calcium 9.6 mg/dL (8.4-10.2); Carbon Dioxide 26 mmol/L (22-29); Chloride 104 mmol/L (96-108); Creatinine Clr Calc Pharmacy 85.9; Estimated Glomerular Filt Rate > 60; Magnesium 2.0 mg/dL (1.6-2.6); Potassium 3.6 mmol/L (3.3-5.1); Sodium 141 mmol/L (135-145); Total Protein 7.9 g/dL (6.5-8.0)
[2025-07-28 04:26] LABS: Hematocrit 39.2 % (37.0-47.0); Hemoglobin 13.2 g/dl (12.0-16.0); Imm Gran Abs Auto 0.03 X10*3/uL (0.00-0.03); Imm Gran Pct Auto 0.2 % (0.0-0.4); Lymphocytes Absolute Auto 2.0 X10*3/uL (1.2-4.9); Mean Corpuscular HGB Conc 33.7 g/dl (31.0-35.0); Mean Corpuscular Hemoglobin 29.0 pg (27.0-33.0); Mean Corpuscular Volume 86.2 fL (80.0-98.0); NRBC Abs Auto 0.000 X10*3/uL (0.0-0.012); NRBC Pct Auto 0.0 /100WBC (0.0-0.2); Platelet Count 263 X10*3/uL (160-400); Red Blood Count 4.55 X10*6/uL (4.20-5.50); White Blood Count 12.7 X10*3/uL (4.8-10.8)
[2025-07-28 04:31] LABS: NT Pro B Type Natriuretic Pept 160.4 pg/mL (<300)
[2025-07-28 04:37] LABS: Troponin-I High Sensitivity < 2.7 ng/L (<3.5-17.0)
[2025-07-28 04:50] LABS: Venous Blood Gas Refer to POC result
[2025-07-28 04:51] LABS: COVID-19 Test Negative (Negative); IDNOW Serial# 55D5AD1C; IDNOW Serial# 58CA691E; Influenza B2 Negative (Negative)
--- OUTSIDE RECORDS SUMMARY | 2025-07-28 06:04 | XMS_ITS ---
Author Name [facility] Organization Unknown Care Team Organization Name Specialty Phone Email Start Date End Da te [facility] Lu Chavez [facility] 01/02/2023 024 [facility] Barb Hull [facility] 09/04/20222023
--- NOTE | 2025-07-28 06:49 | ED.SOB ---
HPI - SOB/Dyspnea General Chief Complaint: Dyspnea Stated Complaint: Dyspnea Time Seen by Provider: 07/28/25 03:42 Source: patient and family Mode of arrival: ambulatory Limitations: language barrier History of Present Illness ED Provider: Dr. Natty Sol HPI Narrative: 64-year-old female with a history of hypertension and hyperlipidemia presenting with chest pain, cough, shortness of breath ongoing for the last 24 hours or so. Describes a cough that is nonproductive. She had a low-grade fever at home has been taking [id number] cold medicine. T-max at home was about 101?. She denies other sick contacts or travel. Denies nausea, vomiting, diarrhea, abdominal pain, extremity swelling or pain. She is a nonsmoker. She has no history of lung disease. She does have a history of heart disease but does not take blood thinners. Related Data Home Medications ?Medication ?Instructions ?Recorded ?Confirmed atenolol 25 mg tablet 25 mg PO TID 12/11/21 07/28/25 rosuvastatin 20 mg tablet 1 tab PO BEDTIME 12/11/21 07/28/25 acetaminophen 500 mg tablet 500 mg PO Q6H PRN Pain/Fever 07/28/25 07/28/25 aspirin 325 mg tablet 325 mg PO Q4H PRN Pain/Fever 07/28/25 07/28/25 hydrochlorothiazide 12.5 mg capsule 12.5 mg PO DAILY 07/28/25 07/28/25 Allergies Allergy/AdvReac Type Severity Reaction Status Date / Time apple (APPLE) Allergy Severe ANAPHYLAXIS Verified 07/28/25 03:35 [place] And Derivatives Allergy Severe ANAPHYLAXIS Verified 07/28/25 03:35 (CITRUS AND DERIVATIVES) fructose (FRUCTOSE) Allergy Severe ANAPHYLAXIS Verified 07/28/25 03:35 Penicillins (PENICILLINS) Allergy Intermediate RASH Verified 07/28/25 03:35 tuberculin, purified protein Allergy Intermediate RASH,BLISTE Verified 07/28/25 03:35 deriva RS (TUBERCULIN,PURIF.PROT.DERIV.) penicillin V Allergy Unknown Rash Verified 07/28/25 03:35 TB test Allergy Unknown Swelling Uncoded 07/28/25 03:35 Review of Systems Review of Systems: as per HPI, full review of systems performed and negative but for the above mentioned pertinent positives and negatives. [facility] Past Medical History Medical History Hemorrhoids Hypercholesteremia Hypertension Surgical History H/O: hysterectomy Social History Social History Household Members: Family Housing: Apartment Do you presently have visiting nurse or other home services: No Alcohol intake: never Patient Tobacco Use Status: Never used Tobacco Smoked in Last 30 Days: No Use of substances other than those prescribed or required for medical reasons: No Have you been hit, kicked, punched, or otherwise hurt by someone within the past year? If so, by whom?: No Do you feel safe in your current relationship?: Yes Is there a partner from a previous relationship who is making you feel unsafe now?: No Are you made to feel afraid or neglected: No Advance Directives: No Advance Directives Information Provided: Yes Do you have a plan to hurt others: No Plan Recently lost weight without trying: No Nutrition Risks: No Nutritional Risk Patient : No : No Poor oral hygiene: No Current occupation: right handed Physical Exam Exam: Exam: GENERAL: Chronically ill-appearing, moderate respiratory distress. SKIN: Normal skin color for ethnicity, warm, dry, no rashes noted. HEENT: Normocephalic, atraumatic, no stridor, EOMI. NECK: Soft, supple, full ROM, midline structures nontender, no step-offs, no deformities, no lymphadenopathy. CHEST: Heart regular tachycardia, symmetric chest rise and fall. PULMONARY: Coarse lung sounds bilaterally, diminished at the bases, moderate respiratory distress with poor air movement, no wheezes. ABDOMINAL: Soft, protuberant nontender, quiet bowel sounds in all quadrants. : Deferred. MUSCULOSKELETAL: Normal tone, full range of motion, no deformities, no peripheral edema. NEURO: Alert and oriented to person, CN II through XII intact, no focal neurologic deficits. PSYCHIATRIC: Anxious affect, appropriate demeanor. Vital Signs: Vital Signs: Last Vital Signs Temp 97.6 F 07/28/25 22:15 Pulse 80 07/28/25 22:15 Resp 18 07/28/25 22:15 BP 165/76 H 07/28/25 22:15 Pulse Ox 93 07/28/25 22:15 O2 Del Method Nasal Cannula 07/28/25 22:15 O2 Flow Rate 2 07/28/25 22:15 BMI result Body Mass Index 36.3 Course Reevaluation(s) Reevaluation #1: 8:26 AM 07/28/2025 (Dr. Speedy Mckeon): I spoke to the patient regarding her CT findings, negative for PE but looks like she has multifocal pneumonia, she presented tachycardic, hypoxic, already received fluids, antibiotics, we will plan for admission. Medications Administered Generic Name Dose Route Start Last Admin Trade Name Freq PRN Reason Stop Dose Admin Acetaminophen 650 mg 07/28/25 09:03 07/28/25 15:59 Acetaminophen 325 Mg Tablet PO 650 mg Q6H PRN Administration Pain, Mild 1-3,fever,headache Artificial Tears 1 drop 07/28/25 12:44 07/28/25 15:57 Artificial Tears 15 Ml Drops EYE-BOTH 1 drop Q4H PRN Administration Dry Eyes Atenolol 25 mg 07/28/25 11:00 07/28/25 20:57 Atenolol 25 Mg Tablet PO 25 mg TID BEE Administration Protocol Atorvastatin Calcium 40 mg 07/28/25 21:00 07/28/25 20:57 Atorvastatin Calcium 40 Mg Tablet PO 40 mg BEDTIME BEE Administration Enoxaparin Sodium 40 mg 07/28/25 10:00 07/28/25 10:33 Enoxaparin Sodium 40 Mg/0.4 Ml Syringe SUBCUT 40 mg Q24H BEE Administration Azithromycin 500 mg/ Sodium 250 mls @ 125 mls/hr 07/28/25 10:00 07/28/25 13:53 Chloride IV Infused Q24H BEE Infusion Sodium Chloride 3 ml 07/28/25 16:00 07/29/25 00:59 0.9 % Sodium Chloride Flush 3 Ml Syringe IVFLUSH 3 ml QSHIFT BEE Administration Discontinued Medications Generic Name Dose Route Start Last Admin Trade Name Freq PRN Reason Stop Dose Admin Ceftriaxone Sodium 2 gm 07/28/25 03:58 07/28/25 04:23 Ceftriaxone Sodium 2 Gm Vial IVPUSH 07/28/25 03:59 2 gm ONCE ONE Administration Albuterol Sulfate 2.5 mg/ 0 mg 07/28/25 03:54 07/28/25 04:02 Albuterol/Ipratropium 3 ml INHALE 07/28/25 03:55 5 dose ONCE ONE Administration Lactated Ringer's 1,000 mls @ 999 mls/hr 07/28/25 03:58 07/28/25 05:30 Lr IV 07/28/25 04:58 Infused .Q1H1M ONE Infusion Doxycycline Hyclate 100 mg/ 250 mls @ 166.67 mls/hr 07/28/25 03:58 07/28/25 05:53 Sodium Chloride IV 07/28/25 05:27 Infused ONCE ONE Infusion Iohexol 65 ml 07/28/25 07:32 07/28/25 07:33 Iohexol 350 Mg/Ml 100 Ml Infus..Btl IV 07/28/25 07:33 65 ml ONCE ONE Administration Medical Decision Making Medical Decision Making MDM Narrative: Patient presents in respiratory distress. Differential diagnosis includes flash pulmonary edema, COPD exacerbation, pneumothorax, pneumonia, ACS, pulmonary embolism, metabolic acidosis, among many others. The serious nature of the patient's symptoms makes this presentation complex, with potential for significant, worsening morbidity and mortality without immediate treatment/intervention. Patient placed on nebulizer treatment with significant improvement in work of breathing. Oxygen level has improved but she remains only about 94% on nasal cannula oxygen. She has no history of oxygen requirement or lung disease. Chest x-ray does not show evidence of large infiltrate. EKG is not ischemic. Viral swabs are negative. BNP is low, cardiac enzyme low, lactic acid low. She is not currently septic but given her level of work of breathing and poor oxygenation with the associated low-grade fevers, we will treat as sepsis and cover her with broad-spectrum antibiotics including doxycycline and Rocephin. She will receive a 1 L bolus. 7:10 AM 07/28/2025 (Dr. Natty Sol, D.O.) given patient's hypoxia, tachycardia we will order a CTA to evaluate for pulmonary embolism and to have a closer look at the lung parenchyma. Anticipate admission for hypoxic respiratory failure and probably community-acquired pneumonia. Signing out to oncoming provider pending CTA results and final disposition. Differential Diagnosis Differential Diagnoses: The differential diagnosis associated with the presentation includes (As above) Admission/Observation Consideration of admission/observation: Escalation of care including admission/observation considered Consult Healthcare Provider Management of the patient was discussed with: Hospitalist Lab Data [facility] [place] Lab Attestation statement: I reviewed the patient's lab results. 07/28/25 04:01 07/28/25 04:01 Labs: Lab Results 07/28/25 07/28/25 07/28/25 Range/Units 04:01 04:08 04:21 WBC 12.7 H (4.8-10.8) X10*3/uL RBC 4.55 (4.20-5.50) X10*6/uL Hgb 13.2 (12.0-16.0) g/dl Hct 39.2 (37.0-47.0) % MCV 86.2 (80.0-98.0) fL MCH 29.0 (27.0-33.0) pg MCHC 33.7 (31.0-35.0) g/dl RDW 13.5 (11.0-16.0) % Plt Count 263 D (160-400) X10*3/uL MPV 10.0 (9.4-12.3) fL Immature Gran % (Auto) 0.2 (0.0-0.4) % Neut % (Auto) 73.5 H (45-73) % Lymph % (Auto) 15.7 L (20-40) % [place] % (Auto) 7.6 (2-11) % Eos % (Auto) 2.6 (0-4) % Baso % (Auto) 0.4 (0-2) % Lymph # (Auto) 2.0 (1.2-4.9) X10*3/uL [place] # (Auto) 1.0 (0.1-1.2) X10*3/uL Eos # (Auto) 0.3 (0.0-0.4) X10*3/uL Baso # (Auto) 0.1 (0.0-0.2) X10*3/uL Abs Immat Gran (auto) 0.03 (0.00-0.03) X10*3/uL Absolute Neuts (auto) 9.3 H (2.0-8.3) x10*3/uL Absolute Nucleated RBC 0.000 (0.0-0.012) X10*3/uL Nucleated RBC % (auto) 0.0 (0.0-0.2) /100WBC VBG pH 7.40 (7.32-7.43) VBG pCO2 37 mmHg VBG pO2 67 mmHg VBG HCO3 23 (22-26) mmol/L VBG O2 Saturation 90.0 % VBG Base Excess -0.7 mmol/L Sodium 141 (135-145) mmol/L Potassium 3.6 (3.3-5.1) mmol/L Chloride 104 (96-108) mmol/L Carbon Dioxide 26 (22-29) mmol/L Anion Gap 15 (12-20) BUN 11 (9-16) mg/dL Creatinine 0.68 (0.5-1.4) mg/dL Estim Creat Clear Calc 85.9 Estimated GFR > 60 Random Glucose 150 H (60-115) mg/dL Lactic Acid 1.0 (0.5-2.0) mmol/L Calcium 9.6 (8.4-10.2) mg/dL Magnesium 2.0 (1.6-2.6) mg/dL Total Bilirubin 0.5 (0.0-1.0) mg/dL AST 24 (5-31) U/L ALT 23 (0-31) U/L Alkaline Phosphatase 49 (39-117) U/L Troponin I High Sens < 2.7 (<3.5-17.0) ng/L NT-Pro-B Natriuret Pep 160.4 (<300) pg/mL Total Protein 7.9 (6.5-8.0) g/dL Albumin 4.7 (3.5-5.0) g/dL COVID-19 (AQUILES) Negative (Negative) COVID-19 Clin Com See Note Influenza Type A (TESSIE) Negative (Negative) Influenza Type B (TESSIE) Negative (Negative) Influenza A & B Note See Note Independent Interpretation I performed an independent interpretation of an: EKG and Plain X-Ray Interpretation: My independent interpretation of the chest x-ray reveals no consolidations, pulmonary edema, pleural effusion, pneumothorax, obvious bony abnormalities. My independent interpretation of the ECG reveals normal sinus tachycardia with rate of 106, normal axis, normal intervals, no ST elevations or depressions to suggest ischemic changes, relatively unchanged from previous on 02/24/2023. Radiology Impression Discussion of test interpretation with radiology: I have reviewed the radiologist's reading. Independent Historian Clinical information obtained from an independent historian. History obtained from or confirmed by: Spouse Chronic Conditions Patient?s care impacted by: Hypertension and Other (CAD) Social Determinants Patient?s care significantly limited by Social Determinants of Health including: Other Social Determinant of Health Discharge Plan Discharge Clinical Impression: Acute hypoxemic respiratory failure, Multifocal pneumonia Patient Disposition: Admitted As Inpatient Interventions: Admission Worksheet (ED) Last Done: 07/28/25 20:47 Discharge Date/Time: 07/28/25 22:07
[2025-07-28] MEDS: iohexoL 350 MG/ML 100 ML INFUS..BTL 65 ML IV (07:33)
--- NOTE | 2025-07-28 07:33 | PC.NURSE ---
Assumed care of pt at 0700. Pt resting in bed quietly, a/ox3, speaking in full sentences, respirations even and unlabored, no increased wob/sob noted, pt remains on 4L O2 NC, no signs of distress. Tachy on security monitor, HR 100s-110s, denies CP/SOB. Pt up oob to commode with assistance from director instrumentation. Vitals updated in worklist. Pt updated on plan of care. Pt taken to CT.
--- NOTE | 2025-07-28 09:11 | PM.IMHP ---
History of Present Illness Date of Service: 07/28/25 Chief Complaint: Fever 64-year-old female with a history of hypertension and hyperlipidemia presented to the ED with 3 days of productive cough, chest pain and fever. Yesterday she developed a fever and hypoxia. She spoke to her daughter who encouraged her to be checked out at the ED. Patient denied any sick contacts, nausea, vomiting, diarrhea, recent travel. She reported just feeling very tired the last few days. She did take one dose of 500mg Amoxicillin and a full dose aspirin for the fever. In the ED Chest CT was noted to be positive for multifocal pneumonia, no PE. She had mildly elevated WBC, tachycardia and tachypnea. Nevaeh's can IV Rocephin, doxycycline and 1 L of IV fluid. She will be admitted for further management and treatment of sepsis secondary to multifocal pneumonia Review of Systems Review of Systems: Denies any recent fever chills or decrease in appetite respiratory see HPI cardiovascular see HPI gastrointestinal denies any dysphagia abdominal pain nausea vomiting or diarrhea genitourinary denies any dysuria frequency or hematuria musculoskeletal denies any joint pain or swelling neuropsych denies any weakness or seizures all other systems reviewed are negative [facility] Medical History Hemorrhoids Hypercholesteremia Hypertension Surgical History H/O: hysterectomy Social History Alcohol intake: never Patient Tobacco Use Status: Never used Tobacco Smoked in Last 30 Days: No Use of substances other than those prescribed or required for medical reasons: No Advance Directives: No Advance Directives Information Provided: Yes Do you have a plan to hurt others: No Plan Current occupation: right handed Meds Allergies Allergy/AdvReac Type Severity Reaction Status Date / Time apple (APPLE) Allergy Severe ANAPHYLAXIS Verified 07/28/25 03:35 [place] And Derivatives Allergy Severe ANAPHYLAXIS Verified 07/28/25 03:35 (CITRUS AND DERIVATIVES) fructose (FRUCTOSE) Allergy Severe ANAPHYLAXIS Verified 07/28/25 03:35 Penicillins (PENICILLINS) Allergy Intermediate RASH Verified 07/28/25 03:35 tuberculin, purified protein Allergy Intermediate RASH,BLISTE Verified 07/28/25 03:35 deriva RS (TUBERCULIN,PURIF.PROT.DERIV.) penicillin V Allergy Unknown Rash Verified 07/28/25 03:35 TB test Allergy Unknown Swelling Uncoded 07/28/25 03:35 Active Medications: Current Medications Acetaminophen (Acetaminophen 325 Mg Tablet) 650 mg PO Q6H PRN PRN Reason: Pain, Mild 1-3,fever,headache Calcium Carbonate (Calcium Carbonate 750 Mg Tab.Chew) 750 mg PO Q4H PRN PRN Reason: Heartburn Enoxaparin Sodium (Enoxaparin Sodium 40 Mg/0.4 Ml Syringe) 40 mg SUBCUT Q24H [facility] Magnesium Hydroxide (Milk Of Magnesia 30 Ml Oral.Susp) 30 ml PO DAILY PRN PRN Reason: Constipation Melatonin (Melatonin 3 Mg Tablet) 6 mg PO BEDTIME PRN PRN Reason: Insomnia Ondansetron HCl (Ondansetron Hcl 4 Mg/2 Ml Vial) 4 mg IVPUSH Q8H PRN PRN Reason: Nausea and Vomiting Sodium Chloride (0.9 % Sodium Chloride Flush 3 Ml Syringe) 3 ml IVFLUSH QSHIFT [facility] Home Medications ?Medication ?Instructions ?Recorded ?Confirmed ?Last Taken ?Type atenolol 25 mg tablet 25 mg PO TID 12/11/21 07/28/25 07/27/25 History rosuvastatin 20 mg tablet 1 tab PO BEDTIME 12/11/21 07/28/25 07/27/25 History acetaminophen 500 mg tablet 500 mg PO Q6H PRN Pain/Fever 07/28/25 07/28/25 07/27/25 History aspirin 325 mg tablet 325 mg PO Q4H PRN Pain/Fever 07/28/25 07/28/25 07/27/25 History hydrochlorothiazide 12.5 mg capsule 12.5 mg PO DAILY 07/28/25 07/28/25 07/27/25 History Physical Exam Vital Signs and Narrative: Vital Signs: Last Vital Signs Temp 98.3 F 07/28/25 07:18 Pulse 103 H 07/28/25 07:18 Resp 20 07/28/25 07:18 BP 133/65 07/28/25 07:18 Pulse Ox 92 07/28/25 07:18 O2 Del Method Nasal Cannula 07/28/25 07:18 O2 Flow Rate 4 07/28/25 07:18 BMI result Body Mass Index 36.3 Appearing in no acute distress head is normocephalic atraumatic eyes pupils are PERRLA sclera is anicteric mouth throat mucous membranes are intact and moist neck is supple no lymphadenopathy, no JVD noted lung sounds rhonchi heart regular rate rhythm, clear S1, S2 positive bowel sounds, abdomen is soft, nontender neuro patient is alert x3, no focal deficits Results Labs 07/28/25 04:01 07/28/25 04:01 Labs: Laboratory Results - last 24 hr 07/28/25 07/28/25 07/28/25 04:01 04:08 04:21 MCV 86.2 MCH 29.0 MCHC 33.7 RDW 13.5 Plt Count 263 D MPV 10.0 Immature Gran % (Auto) 0.2 Neut % (Auto) 73.5 H Lymph % (Auto) 15.7 L [place] % (Auto) 7.6 Eos % (Auto) 2.6 Baso % (Auto) 0.4 Lymph # (Auto) 2.0 [place] # (Auto) 1.0 Eos # (Auto) 0.3 Baso # (Auto) 0.1 Abs Immat Gran (auto) 0.03 Absolute Neuts (auto) 9.3 H Absolute Nucleated RBC 0.000 Nucleated RBC % (auto) 0.0 VBG pH 7.40 VBG pCO2 37 VBG pO2 67 VBG HCO3 23 VBG O2 Saturation 90.0 VBG Base Excess -0.7 Anion Gap 15 Estim Creat Clear Calc 85.9 Estimated GFR > 60 Random Glucose 150 H Lactic Acid 1.0 Calcium 9.6 Magnesium 2.0 Total Bilirubin 0.5 AST 24 ALT 23 Alkaline Phosphatase 49 Troponin I High Sens < 2.7 NT-Pro-B Natriuret Pep 160.4 Total Protein 7.9 Albumin 4.7 COVID-19 (AQUILES) Negative COVID-19 Clin Com See Note Influenza Type A (TESSIE) Negative Influenza Type B (TESSIE) Negative Influenza A & B Note See Note Imaging Radiologist's Impressions: Impressions Chest CTA 07/28/25 07:20 IMPRESSION: No acute pulmonary artery emboli. Multifocal acute airspace disease involving mostly the lower lung lobes and lingula. 4 mm granuloma, right lower lung lobe. Hiatal hernia, moderate volume. Fleischner guidelines were followed. Electronically signed by: Elijah Clark MD 07/28/2025 08:27 AM EDT RP Assessment and Plan (1) Multifocal pneumonia: Status: Acute Plan 64 year old women admitted with acute respiratory failure secondary to pneumonia Sepsis secondary to Pneumonia with acute hypoxic respiratory failure Tachycardia, tachypnea, Leukocytosis, normal lactic acid start Rocephin and azithromycin continue supplemental oxygen to keep o2 sat >90% mucinex for cough Incentive spirometry Hypertension stable BP continue home medications DVT prophylaxis with Lovenox Full code Quality Stroke Does the patient have a stroke diagnosis?: No VTE Prior VTE?: No VTE Risk Level:: Medical - moderate - high VTE Device Contraindication: N/A - Device Ordered VTE Drug Contraindication: N/A - Med Ordered
--- NOTE | 2025-07-28 10:15 | PHA.MEDREC ---
Addendum entered by Renetta Gaytan RPh 07/28/25 10:33: reviewed by the [facility] Original Note: Pharmacy Consult ? Medication Reconciliation Pharmacy has completed the medication reconciliation. Spoke with pt and daughter at bedside and they confirmed the pt medications.
--- NOTE | 2025-07-28 10:56 | PC.NURSE ---
O2 titrated to 2L NC- maintaining O2 sats >92%. No increased wob/sob, speaking in full sentences.
--- NOTE | 2025-07-28 11:09 | PC.NURSE ---
Incentive Spirometer done at bedside with this RN- pt tolerated well. Pt states IV site burning with abx infusion. IV site patent- no redness noted. Flushed without difficulties, denies pain when flushed. IV abx infusion slowed- pt tolerating infusion at this time. Call melendrez within reach, all needs met at this time.
--- NOTE | 2025-07-28 12:47 | PC.NURSE ---
Assumed care of pt approx 1230, brought to overflow and transferred to hospital bed. Pt is A/O and dtr present at bedside. Wearing 2L O2 and maintaining sat >90%. NPC noted, pt denies any pain at this time. IV abx running on arrival. Awaiting bed assignment.
--- NOTE | 2025-07-28 14:09 | PC.NURSE ---
Pt ambulated to bathroom with x 1 assist and steady gait.
[2025-07-28] MEDS: Artificial Tears 15 ML DROPS 1 DROP EYE-BOTH (15:57)
--- NOTE | 2025-07-28 19:20 | PC.NURSE ---
Patient awake and alert. skin pwd, resp even and non labored. speaking in full, clear sentences- talking on cell phone at this time. denies pain. incentive spirometer placed w/in patient reach, patient did use incentive spirometer at this time. pt aware of plan of care
[2025-07-29] MEDS: 0.9 % Sodium Chloride Flush 3 ML SYRINGE IVFLUSH ×3 (00:59→21:05)
[2025-07-29 03:22] VITALS: BP 141/71; PULSE 82; RESP 18; TEMP 36.3; O2SAT 95
[2025-07-29 05:55] LABS: Hematocrit 35.4 % (37.0-47.0); Hemoglobin 11.9 g/dl (12.0-16.0); Mean Corpuscular HGB Conc 33.6 g/dl (31.0-35.0); Mean Corpuscular Hemoglobin 29.1 pg (27.0-33.0); Mean Corpuscular Volume 86.6 fL (80.0-98.0); NRBC Abs Auto 0.000 X10*3/uL (0.0-0.012); NRBC Pct Auto 0.0 /100WBC (0.0-0.2); Platelet Count 207 X10*3/uL (160-400); Red Blood Count 4.09 X10*6/uL (4.20-5.50); White Blood Count 7.8 X10*3/uL (4.8-10.8)
[2025-07-29 06:18] LABS: Anion Gap 11 (12-20); Blood Urea Nitrogen 12 mg/dL (9-16); Calcium 9.0 mg/dL (8.4-10.2); Carbon Dioxide 27 mmol/L (22-29); Chloride 107 mmol/L (96-108); Creatinine Clr Calc Pharmacy 100.8; Estimated Glomerular Filt Rate > 60; Potassium 3.5 mmol/L (3.3-5.1); Sodium 141 mmol/L (135-145)
[2025-07-29 07:45] VITALS: BP 133/60; PULSE 66; RESP 18; TEMP 36.7; O2SAT 94
[2025-07-29 08:55] VITALS: BP 133/60; PULSE 66; O2SAT 94
[2025-07-29 09:10] VITALS: BP 160/85
--- NOTE | 2025-07-29 14:56 | MHC.CM.PN ---
PT REPORTS SHE LIVES WITH HER AND IS INDEPENDENT WITH CARE SHE HAS NO DME OR SERVICES HCP ON FILE AND VERIFIED PCP: AT [facility] [place] DCP: HOME VIA FAMILY TRANSPORT
[2025-07-29 15:08] VITALS: BP 174/77; PULSE 77; RESP 17; TEMP 36.1; O2SAT 94
--- NOTE | 2025-07-29 16:26 | P.PNIM_ITS ---
Subjective Subjective Date of Service: 07/29/25 Interval History: Pneumonia Review of Systems Shortness of breaths seems similar, gets short of breath with minimal exertion Has cough Review of Systems: Yes all other systems are reviewed and are negative Physical Exam 2 Exam: Exam: Appearance: Alert.? Oriented X3.sob, talks in short sentences. cvs: rrr, [id number] , no murmur res: air entry diminished lower lungs, has few rhonchi scattered. abd: no rebound or guarding ,nt, bs present. ext pulses present , no cyanosis . neuro: axo3 , nonfocal. Vital Signs: Vital Signs: Last Vital Signs Temp 97.0 F 07/29/25 15:08 Pulse 77 07/29/25 15:08 Resp 17 07/29/25 15:08 BP 174/77 H 07/29/25 15:08 Pulse Ox 94 07/29/25 15:08 O2 Del Method Room Air 07/29/25 15:08 O2 Flow Rate 2 07/29/25 07:45 BMI result Body Mass Index 36.3 Objective Data Active Medications Acetaminophen (Acetaminophen 325 Mg Tablet) 650 mg PO Q6H PRN PRN Reason: Pain, Mild 1-3,fever,headache Last Admin: 07/28/25 15:59 Dose: 650 mg Documented By: ROJAS Artificial Tears (Artificial Tears 15 Ml Drops) 1 drop EYE-BOTH Q4H PRN PRN Reason: Dry Eyes Last Admin: 07/28/25 15:57 Dose: 1 drop Documented By: ROJAS Atenolol (Atenolol 25 Mg Tablet) 25 mg PO TID [facility]; Protocol Last Admin: 07/29/25 15:15 Dose: 25 mg Documented By: GENA Atorvastatin Calcium (Atorvastatin Calcium 40 Mg Tablet) 40 mg PO BEDTIME [facility] Last Admin: 07/28/25 20:57 Dose: 40 mg Documented By: HILTON Calcium Carbonate (Calcium Carbonate 750 Mg Tab.Chew) 750 mg PO Q4H PRN PRN Reason: Heartburn Ceftriaxone Sodium (Ceftriaxone Sodium 1 Gm Vial) 1 gm IVPUSH Q24H [facility] Last Admin: 07/29/25 05:47 Dose: 1 gm Documented By: OUMOU Enoxaparin Sodium (Enoxaparin Sodium 40 Mg/0.4 Ml Syringe) 40 mg SUBCUT Q24H BEE Last Admin: 07/29/25 10:50 Dose: 40 mg Documented By: GENA Hydrochlorothiazide (Hydrochlorothiazide 12.5 Mg Tablet) 12.5 mg PO DAILY [facility]; Protocol Last Admin: 07/29/25 09:10 Dose: 12.5 mg Documented By: GENA Azithromycin 500 mg/ Sodium (Chloride) 250 mls @ 125 mls/hr IV Q24H [facility] Last Infusion: 07/29/25 12:57 Dose: Infused Documented By: GENA Magnesium Hydroxide (Milk Of Magnesia 30 Ml Oral.Susp) 30 ml PO DAILY PRN PRN Reason: Constipation Melatonin (Melatonin 3 Mg Tablet) 6 mg PO BEDTIME PRN PRN Reason: Insomnia Ondansetron HCl (Ondansetron Hcl 4 Mg/2 Ml Vial) 4 mg IVPUSH Q8H PRN PRN Reason: Nausea and Vomiting Sodium Chloride (0.9 % Sodium Chloride Flush 3 Ml Syringe) 3 ml IVFLUSH QSHIFT [facility] Last Admin: 07/29/25 15:17 Dose: Not Given Documented By: GENA Non-Admin Reason: Previously Administered Sodium Chloride (Sodium Chloride 0.65 % Nasal 44 Ml Sprbtl) 1 spray NOSTRIL-B Q1H PRN PRN Reason: DRY NOSE Labs 07/29/25 05:43 07/29/25 05:43 Labs: Laboratory Results - last 24 hr 07/29/25 05:43 MCV 86.6 MCH 29.1 MCHC 33.6 RDW 13.6 Plt Count 207 MPV 10.1 Absolute Nucleated RBC 0.000 Nucleated RBC % (auto) 0.0 Anion Gap 11 L Estim Creat Clear Calc 100.8 Estimated GFR > 60 Random Glucose 112 Calcium 9.0 D Microbiology Microbiology Results: Microbiology 07/28/25 04:21 Blood Culture - Preliminary Blood - Venous No growth after 24 hours. 07/28/25 04:01 Blood Culture - Preliminary Blood - Venous No growth after 24 hours. Assessment and Plan (1) Multifocal pneumonia: Status: Acute (2) Acute hypoxemic respiratory failure: Status: Acute Plan 64 year old women admitted with acute respiratory failure secondary to pneumonia : Patient was admitted for sepsis secondary to pneumonia as well as acute hypoxemic respiratory failure. sepsis secondary to pneumonia as well as acute hypoxemic respiratory failure: Still short of breath with minimal exertion, has cough, still on oxygen. Blood culture negative at 24 hours. Plan: Continue IV antibiotics, taper oxygen, cough medication, ambulation. Incentive spirometry Htn: Blood pressure is suboptimal Continue atenolol, adjusted hydrochlorothiazide to 25 daily DVT prophylaxis: SubQ Lovenox Ongoing need of stay: Acute hypoxemic respiratory failure with pneumonia, significant dyspnea with minimal exertion: Need IV antibiotics, oxygen tapering, as well as close blood pressure and respiratory status monitoring. Quality Stroke Does the patient have a stroke diagnosis?: No VTE Prior VTE?: No VTE Risk Level:: Medical - moderate - high VTE Device Contraindication: N/A - Device Ordered VTE Drug Contraindication: N/A - Med Ordered
[2025-07-29] MEDS: Sodium Chloride 0.65 % Nasal 44 ML SPRBTL 1 SPRAY NOSTRIL-B (18:00)
[2025-07-29 19:35] VITALS: BP 133/71; PULSE 73; RESP 17; TEMP 36.9; O2SAT 93
[2025-07-30 03:19] VITALS: BP 161/76; PULSE 62; RESP 18; TEMP 36.3; O2SAT 96
[2025-07-30 07:45] VITALS: BP 150/63; PULSE 64; RESP 18; TEMP 36.3; O2SAT 95
[2025-07-30] MEDS: 0.9 % Sodium Chloride Flush 3 ML SYRINGE IVFLUSH (07:57)
[2025-07-30] MEDS: guaiFENesin 200 MG/10 ML 10 ML LIQUID PO (08:52)
--- NOTE | 2025-07-30 11:05 | MHC.CM.PN ---
pt to be dcd home self care
--- NOTE | 2025-07-30 11:26 | P.DS_ITS ---
DS: Providers Provider Date of Service: 07/30/25 Date of admission: 07/28/25 09:03 Date of discharge: 07/30/25 Primary care physician: Lu Chavez MD Attending physician on discharge: Solange Washington Discharging clinician: Solange Washington DS: Diagnosis Discharge Diagnosis (1) Multifocal pneumonia: Status: Acute (2) Acute hypoxemic respiratory failure: Status: Acute DS: Summary Hospital Course Hospital Course: HPI:64-year-old female with a history of hypertension and hyperlipidemia presented to the ED with 3 days of productive cough, chest pain and fever. Yesterday she developed a fever and hypoxia. She spoke to her daughter who encouraged her to be checked out at the ED. Patient denied any sick contacts, nausea, vomiting, diarrhea, recent travel. She reported just feeling very tired the last few days. She did take one dose of 500mg Amoxicillin and a full dose aspirin for the fever. In the ED Chest CT was noted to be positive for multifoca l pneumonia, no PE. She had mildly elevated WBC, tachycardia and tachypnea. Nevaeh's can IV Rocephin, doxycycline and 1 L of IV fluid. She will be admitted for further management and treatment of sepsis secondary to multifocal pneumonia. Hospital course: Patient admitted for acute hypoxemic respiratory failure secondary to pneumonia: Chest imaging shows bilateral pneumonia, blood cultures sent: Started on IV antibiotics seems to be improved significantly, oxygen demand improved significantly and now off oxygen and ambulating. Patient will be going home with p.o. Ceftin and azithromycin. Repeat chest imaging in 3-4 weeks to see resolution pneumonia. Blood pressure fluctuating-currently continue atenolol home dose, monitor blood pressure closely at home-if consistently above 140/90 mm Hg may need further pressure atenolol dosing adjustment or adding new hypotensive Out patiently. Patient to follow outpatient with PCP. plan: CompleteCeftin and azithromycin. Repeat chest imaging in 3-4 weeks to see resolution pneumonia. Chlorthalidone dosing adjusted to 25 mg p.o. daily, monitor blood pressure closely. Above management discussed with the patient and her daughter in detail length they both understand and agreement with the above plan, total time spent 45 minute. All questions answered. Time Attestation Total time managing care of this patient today: 45 mintues. Discharge Coordination Time (in mins): 45 min Quality: Safe Use of Opioids Does Pt have an Active Cancer Diagnosis on the Problem List?: No Quality: Stroke Does the patient have a stroke diagnosis?: No Physical Exam Exam: Exam: Appearance: Alert.? Oriented X3.sob, talks in short sentences. cvs: [id number], [id number] , no murmur res: air entry diminished lower lungs, has few rhonchi scattered. abd: no rebound or guarding ,nt, bs present. ext pulses present , no cyanosis . neuro: axo3 , nonfocal. Vital Signs: Vital Signs: Last Vital Signs Temp 97.3 F 07/30/25 07:45 Pulse 64 07/30/25 07:45 Resp 18 07/30/25 07:45 BP 150/63 H 07/30/25 07:45 Pulse Ox 95 07/30/25 07:45 O2 Del Method Room Air 07/30/25 07:45 O2 Flow Rate 2 07/30/25 07:45 BMI result Body Mass Index 36.3 DS: Data Data Completed and Pending Labs on day of discharge: Preliminary micro results at discharge 07/28/25 04:21 Blood Culture - Preliminary Blood - Venous No growth after 48 hours. 07/28/25 04:01 Blood Culture - Preliminary Blood - Venous No growth after 48 hours. Imaging Chest x-ray: Radiologist's impression: ITS Impressions Chest CTA 07/28/25 07:20 IMPRESSION: No acute pulmonary artery emboli. Multifocal acute airspace disease involving mostly the lower lung lobes and lingula. 4 mm granuloma, right lower lung lobe. Hiatal hernia, moderate volume. Fleischner guidelines were followed. Discharge Plan Discharge Anticipated Discharge Date/Time: 07/30/25 07:33 Patient Disposition: Home, Self-Care Discharge Diagnosis: Acute hypoxemic respiratory failure secondary to pneumonia Referrals: Lu Chavez MD [Primary Care Provider, Internal Medicine] - 1 Week Discharge Medications: New cefuroxime axetil 500 mg tablet 500 mg PO Q12H Qty: 14 0RF azithromycin 500 mg tablet 500 mg PO DAILY 5 Days Qty: 5 0RF loratadine 10 mg Tablet 10 mg PO DAILY Qty: 7 0RF guaifenesin 100 mg/5 mL Liquid 100 mg PO Q4H PRN (Reason: Cough) Qty: 500 0RF Artificial Tears([id number]) 1-0.2-0.2 % Drops 1 drp ophthalmic (eye) Q4H PRN (Reason: Dry Eyes) Qty: 10 0RF benzonatate 100 mg Capsule 100 mg PO TID PRN (Reason: Cough) Qty: 21 0RF Continued atenolol 25 mg tablet 25 mg PO TID rosuvastatin 20 mg tablet 1 tab PO BEDTIME aspirin 325 mg Tablet 325 mg PO Q4H PRN (Reason: Pain/Fever) acetaminophen 500 mg Tablet 500 mg PO Q6H PRN (Reason: Pain/Fever) Changed hydrochlorothiazide 12.5 mg capsule 25 mg PO DAILY Qty: 180 0RF Discharge Orders: Discharge Order (Routine); Ordered 07/30/25 Ordered By: Solange Washington Diet: Advance to usual diet Activity on Discharge: As tolerated Stand Alone Forms: Patient Portal Discharge page Print Language: Arabic Care Plan Goals: Patient admitted for acute hypoxemic respiratory failure secondary to pneumonia: Chest imaging shows bilateral pneumonia, blood cultures sent: Started on IV antibiotics seems to be improved significantly, oxygen demand improved significantly and now off oxygen and ambulating. Patient will be going home with p.o. Ceftin and azithromycin. Repeat chest imaging in 3-4 weeks to see resolution pneumonia. Blood pressure fluctuating-currently continue atenolol home dose, monitor blood pressure closely at home-if consistently above 140/90 mm Hg may need further pressure atenolol dosing adjustment or adding new hypotensive Out patiently. Patient to follow outpatient with PCP. Health Concerns: As above. Plan of Treatment: As above. Assessment: As above. Patient Instructions: Pneumonia (DC) Discharge Date/Time: 07/30/25 12:23
== END 2025-07-30 12:23 | disposition home or self-care (01) | DRG 720 ==
LOC: HO.ED 06:01 → HO.EDOVER 09:15 → HO.S3 20:48
PROVIDERS: Admitting Provider Nurse Practitioner Acute Care; Emergency Provider Emergency Medicine; PCP Internal Medicine; Visit Provider Internal Medicine
DX: A41.9 Sepsis, unspecified organism (principal); J96.01 Acute respiratory failure with hypoxia; I10 Essential (primary) hypertension; Z20.822 Contact with and (suspected) exposure to COVID-19; Z79.82 Long term (current) use of aspirin; Z79.899 Other long term (current) drug therapy
CPT/HCPCS: 36415; 71045; 71275; 80048; 80053; 82803; 83605; 83735; 83880; 84484; 85025; 85027; 87040; 87502; 87635; 93005; 94640; 97162; 99285; J0456; J0696; J1271; J1650; J7120; Q9967

== ENCOUNTER → 2025-07-28 03:36 | Outpatient (BNV) | payer OTHER, SELFPAY | PROVIDERS: Admitting Provider Nurse Practitioner Acute Care; Emergency Provider Emergency Medicine; Visit Provider Internal Medicine | DX: R00.0 Tachycardia, unspecified (principal) | CPT/HCPCS: 93010 ==

== ENCOUNTER → 2025-07-28 03:50 | Outpatient (BNV) | payer OTHER, SELFPAY | PROVIDERS: Emergency Provider Emergency Medicine; Visit Provider Radiology Diagnostic Radiology | DX: J84.10 Pulmonary fibrosis, unspecified (principal); K44.9 Diaphragmatic hernia without obstruction or gangrene; R06.00 Dyspnea, unspecified | CPT/HCPCS: 71045; 71275 ==

== ENCOUNTER → 2025-07-28 09:03 | Outpatient (BNV) | payer OTHER, SELFPAY | PROVIDERS: Admitting Provider Nurse Practitioner Acute Care; Emergency Provider Emergency Medicine; Visit Provider Internal Medicine | DX: J18.8 Other pneumonia, unspecified organism (principal); J96.01 Acute respiratory failure with hypoxia | CPT/HCPCS: 99223; 99232; 99239 ==

== ENCOUNTER 2025-10-13 15:03 | Outpatient (AMB) | payer OTHER, SELFPAY ==
--- NOTE | 2025-10-13 15:04 | A.OFFVIS_ITS ---
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 President Practicing Urologist Required: Yes President Practicing Urologist Services: President Practicing Urologist Present President Practicing Urologist Name: Shukri/ham Information Interpreted: non-clinical & clinical Telephone Engineer: Telephone Engineer Present (Jasmine) Accompanied by: niece Allergies apple (APPLE) Allergy (Severe, Verified 10/13/25 15:12) ANAPHYLAXIS [place] And Derivatives (CITRUS AND DERIVATIVES) Allergy (Severe, Verified 10/13/25 15:12) ANAPHYLAXIS fructose (FRUCTOSE) Allergy (Severe, Verified 10/13/25 15:12) ANAPHYLAXIS Penicillins (PENICILLINS) Allergy (Intermediate, Verified 10/13/25 15:12) RASH tuberculin, purified protein deriva (TUBERCULIN,PURIF.PROT.DERIV.) Allergy (Intermediate, Verified 10/13/25 15:12) RASH,BLISTERS penicillin V Allergy (Unknown, Verified 10/13/25 15:12) Rash TB test Allergy (Unknown, Uncoded 10/13/25 15:12) Swelling Medication List - Last Reconciled 10/13/25 by Lavonne Garcia LPN acetaminophen 500 mg PO Q6H PRN aspirin 325 mg PO Q4H PRN atenolol 25 mg PO TID benzonatate 100 mg PO TID PRN guaifenesin 100 mg (5 mL) PO Q4H PRN hydrochlorothiazide 25 mg PO DAILY loratadine 10 mg PO DAILY peg [id number] 1-0.2-0.2 % (Artificial Tears ([id number])) 1 drp ophthalmic (eye) Q4H PRN rosuvastatin 1 tab PO BEDTIME Do you need a note to return to daycare/school/sports/work: No HPI Comments Details: Patient is a postmenopausal woman 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 Currently sexually active. Attempting to eat a healthy diet with calcium and vitamin D and stays active with exercise. Hysterectomy due to fibroids and heavy bleeding. Last mammogram; Do, no records available. [facility] is [facility] Medical History Hemorrhoids Hypercholesteremia Hypertension Surgical History H/O: hysterectomy Social History Household Members: Family Housing: Apartment Do you presently have visiting nurse or other home services: No Alcohol intake: never Patient Tobacco Use Status: Never used Tobacco service: No Current occupation: right handed Female Reproductive History Menstrual Age of Menarche: 15 Menopause type: surgical (hysterectomy 2011 -bleeding and fibroids) Date of menopause: 10/13/14 Total pregnancies: 5 Number of Living Children: 4 Ab spontaneous: 1 Date of Mammogram: 02/10/25 History of abnormal mammogram: No Physical Exam Vital Signs: Last Vital Signs BP 124/76 10/13/25 15:08 BMI result Body Mass Index 36.8 Const General: cooperative, healthy appearing, no acute distress, well developed and alert Orientation/consciousness: patient oriented x3 HEENT Head: Yes normal to inspection Eyes General: appearance normal, both eyes and all related structures Neck Neck: Yes normal visual inspection Thyroid: Thyroid normal Chest Chest palpation & inspection: normal inspection of the chest Breast/axilla inspection: normal inspection of the breasts, normal inspection of the axillae and Other (No puckering, dimpling, peau de orange, retraction, discharge, or masses) Breast/axilla palpation: normal palpation of the breasts and normal palpation of the axillae GI Inspection: Yes normal to inspection Palpation (GI): Soft to palpation General: Yes bladder normal to inspection and Yes bladder normal to palpation External Female Exam: normal external appearance and normal appearance of the urethra Speculum Exam - Vagina: normal appearance of the vagina and normal vaginal discharge Speculum Exam - Cervix: Cervix absent (Vaginal cuff, no lesions or nodules) Bimanual exam- vagina & uterus: bladder normal to palpation and uterus absent Bimanual Exam- Adnexa, other: no masses and No adnexal tenderness Skin Rashes: rashes noted (Bilateral groins) Neuro General: patient oriented x3 Cognition (Neuro): normal cognition Extrem General: Yes normal to inspection Psych Attitude: cooperative Thought process: Normal thought process present Assessment & Plan Assessment & Plan (1) Encounter for well woman exam with routine gynecological exam: Code(s): Z01.419 - Encounter for gynecological examination (general) (routine) without abnormal findings Category: Medical Plan: Discussed: Current recommendations for pap smears per ASCCP guidelines. Breast awareness, periodic self breast exams and yearly mammogram. Sign a release of records for mammograms. Maintain a healthy lifestyle, well balanced diet including Calcium 1,200 mg and Vitamin D 600 IU daily, and routine exercise. Patient verbalizes understanding and agrees to the plan of care. She was given opportunity to ask questions and all questions were answered to the best of my ability. RTO in 1 year for annual self rising flour mixer exam. This note is constructed using voice recognition software. While every effort has been made to ensure accuracy, reflector driller and deburrer errors may have been included. (2) Skin rash: Code(s): R21 - Rash and other nonspecific skin eruption Category: Medical Plan Discussed kin skin care, Rx sent in for rash, follow up PRN. Continue with probiotics. The patient expressed understanding and agreement with the plan of care. All of her questions and concerns were addressed to the best of my ability. Orders: Orders Bacterial Vaginosis Panel Today Z11.3 - Encounter for screening for infections with a predominantly sexual mode of transmission Medications: New clotrimazole-betamethasone 1-0.05 % apply externally a thin coat to the area 1 appl topical BID 45 grams 0RF itching 7 days Coding Level of Care Code New Pt Prev Care 40-64y(24671) Diagnoses Encounter for well woman exam with routine gynecological exam Z01.419 Skin rash R21
[2025-10-13 15:08] VITALS: BP 124/76; BMI 36.8
--- OUTSIDE RECORDS SUMMARY | 2025-10-13 20:01 | XMS_ITS | Encounter Summary ---
Author Organization [facility] [place] [address] Care Team Providers Care Professional Fighter Name Role Phone Lu Chavez MD Primary Care Provider [phone] Encounter Details Date Type Department Care Team (Late Contact Info) Description 08/26/2025 Results Follow-Up [address] [phone] Lu Chavez MD [address] [place] [address] Social History Tobacco Use Types Packs/Day Years Used Date Smoking Tobacco: Never Smokeless Tobacco: Never Alcohol Use Standard Drinks/Week Comments No 0 (1 standard drink = 0.6 oz pur e alcohol) Comments No Sex and Gender Information Value Date Recorded Sex Assigned at Female 02/01/2025 11:16 AM EDT Legal Sex Female 4:05 PM EST Gender Identity Female 02/01/2025 11:16 AM EDT Sexual Orientation Something else 02/01/2025 11 :16 AM EDT documented as of this encounter Plan of Treatment Upcoming Encounters Date Type Department Care Team (Late Contact Info) Description 11/10/2025 11:00 AM EST Office Visit Adult [address] [phone] Nader Cueto PA [address] [place] [address] [phone] 03/02/2026 9:30 AM EDT Office Visit Adult Medicine [address] [phone] Lu Chavez MD [address] [place] [address] 06/27/2026 8:20 AM EDT Consult Gastroenterology - [address] [phone] Erika Story, JAYDE [address] [id number] documented as of this encounter Visit Diagnoses Not on filedocumented in this encounter Additional Health Concerns Infection Onset Date Last Indicated Resolved Time C. difficile Rule-Out 08/30/2025 08/30/20252024 11:22 AM EST documented as of this encounter Care Teams Professional Fighter Relationship Specialty Start Date End Date Lu Chavez MD [address] [place] [address] PCP - General Internal Medicine 06/06/22 documented as of this encounter
--- OUTSIDE RECORDS SUMMARY | 2025-10-13 20:01 | XMS_ITS | Clinical Summary ---
Author Organization 175 [facility] Address [address] [place] [address] Phone Care Team Providers Care Drawbridge Tender Name Role Phone Lu Chavez MD Primary Care Provider [phone] Allergies Active Allergy Reactions Criticality Noted Date Comments Apple 12/06/2015 SOB, hives Atorvastatin 02/28/2017 Insomnia, diarrhea Fructose Hives,Wheezing High 12/06/2015 Iodinated Contrast Media Swelling,Numbness Medium 02/2016 Numbness, tingling or swelling of the lips, tongue or mouth CT abd/pelv 01/31/16 - Pt had numbness of tongue x 10 minutes, spont resolved. 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 NO FURTHER PPD TESTING Medications rosuvastatin (CRESTOR) 20 mg tablet Take 1 tablet (20 mg total) by mouth 1 (one) time each day. 90 tablet 1 5 Active mupirocin (BACTROBAN) 2 % ointment Apply topically 3 (three) times a day. 22 g 5 Active nystatin (MYCOSTATIN) 100,000 unit/gram powder Apply thin layer to affected area BID for 2 weeks then stop. 30 g 5 Active atenoloL (TENORMIN) 25 mg tablet Take 1 tablet (25 mg total) by mouth 3 (three) times a day. 270 each 1 5 Active loratadine (CLARITIN) 10 mg tablet Take 1 tablet (10 mg total) by mouth 1 (one) time each day. 90 tablet 1 5 Active hydroCHLOROthi azide (HYDRODIURIL) 25 mg tablet Take 1 tablet (25 mg total) by mouth 1 (one) time each day. 90 each 1 5 Active atenoloL (TENORMIN) 25 mg tablet Take 1 tablet (25 mg total) by mouth 3 (three) times a day. 270 each 1 5 10/06/20 25 Discontinue d(Reorder) hydroCHLOROthi azide (MICROZIDE) 12.5 mg capsule Take 1 capsule (12.5 mg total) by mouth 1 (one) time each day. 90 capsule 1 5 10/06/20 25 Discontinue d(Discontin ued by another clinician) loratadine (CLARITIN) 10 mg tablet Take 1 tablet (10 mg total) by mouth 1 (one) time each day. 5 10/06/20 25 Discontinue d(Reorder) Active Problems Problem Noted Date Diagnosed Date Type 2 diabetes mellitus wit hout complication, without long-term current use of insulin 01/27/2025 Other headache syndrome 04/11/2020 Overview (08/06/2024): related to changes in weather Obstructive sleep apnea 11/09/2014 Overview (08/06/2024): Not using CPAP - see 01/2015 pulm note [facility] Polysomnogram treatment study. Date 06/10/2018. SE 82 % SM 83 %; spent 20 % of the study in REM. On CPAP @ 8; RDI 7 (AHI 7), Central apneas 17; Obstructive apneas 0; Mixed apneas 0; hypopneas 5; RERAs 0; and, average oxygen saturation was 93%. For the entire study, PLMs ~3. 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 Negative CXR. SHE SHOULD NEVER RECEIVE ANOTHER PPD DUE TO HER SIGNIFICANT REACTION Hypercholesterolemia 12/29/2008 Kidney stones 12/29/2008 Resolved Problems Problem Noted Date Diagnosed Date Resolved Date Prediabetes 03/28/2021 01/27/2025 Encounters Date Type Department Care Team Description 10/06/2025 12:30 PM EST Office Visit [address] [phone] Nader Cueto PA Essential hypertension, benign (Primary Dx); Acute vaginitis; Change in stool 08/30/2025 8:35 AM EST Lab Draw Station - [address] Diarrhea of infectious origin; Dysuria 08/26/2025 10:10 AM EDT Lab Draw Station - [address] Multifocal pneumonia 08/26/2025 9:53 AM EDT - 08/26/2025 11:59 PM EDT Hospital Encounter XRAY [address] [phone] Multifocal pneumonia; Acute hypoxemic respiratory failure (CMS/HCC V24, CMS/HCC V28) Discharge Disposition: Home or Self Care 08/26/2025 9:00 AM EDT Office Visit [address] [phone] Lu Chavez MD Hospital discharge follow-up (Primary Dx); Multifocal pneumonia; Intertrigo; Acute hypoxemic respiratory failure (CMS/HCC V24, CMS/HCC V28); Diarrhea of infectious origin; Dysuria 08/26/2025 Results Follow-Up [address] [phone] Lu Chavez MD 2025 12:45 PM EDT Office Visit [address] [phone] Nader Cueto PA Type 2 diabetes mellitus without complication, without long-term current use of insulin (CMS/HCC V24, CMS/HCC V28) (Primary Dx); Essential hypertension, benign; Hypercholesterolemia 08/03/2025 Results Follow-Up Adult [address] [phone] Nader Cueto PA from Last 3 Months Immunizations Immunization Administration Dates Next Due Influenza trivalent, with pr eservative (Fluzone; Afluria) 6mo and older 07/11/2009 PPD Test 06/13/2011 Tdap Tetanus diptheria acell ular pertussis (Boostrix; Adacel) 7yo and older 01/27/2025 Surgical History Surgery Date Site/Laterality Comments HYSTERECTOMY PROCEDURE: HISTORICAL HYSTERECTOMY TONSILLECTOMY PROCEDURE: HISTORICAL TONSILLECTOMY HEMORRHOID SURGERY 01/04/2015 PROCEDURE: GA INCISION THROMBOSED HEMORRHOID EXTERNAL; COMMENT: [facility] CARPAL TUNNEL RELEASE 08/13/2022 Right PROCEDURE: HISTORICAL CARPAL TUNNEL REL Medical History Medical History Date Comments 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 Stroke Mother Breast cancer Neg Hx Colon cancer Neg Hx Relation Name Status Comments Brother Father Mother Social History Tobacco Use Types Packs/Day Years Used Date Smoking Tobacco: Never Smokeless Tobacco: Never Tobacco Cessation:Counseling Given: Not Answered Alcohol Use Standard Drinks/Week Comments No 0 (1 standard drink = 0.6 oz pur e alcohol) Comments No Sex and Gender Information Value Date Recorded Sex Assigned at Female 02/01/2025 11:16 AM EDT Legal Sex Female 4:05 PM EST Gender Identity Female 02/01/2025 11:16 AM EDT Sexual Orientation Something else 02/01/2025 11 :16 AM EDT Obstetrics History Para Term AB IAB SAB Ectopic Multiple Livin g Live Births 5 Last Filed Vital Signs Vital Sign Reading Time Taken Comments Blood Pressure 145/76 10/06/2025 12:38 PM EST Pulse 70 10/06/2025 12:38 PM EST Temperature 36.4 C (97.6 F) 10/06/2025 12:38 PM EST Respiratory Rate 14 10/06/2025 12:38 PM EST Oxygen Saturation 94% 10/06/2025 12:38 PM EST Inhaled Oxygen Concentration - - Weight 88.5 kg (195 lb) 10/06/2025 12:38 PM EST Height 154.9 cm (5' 1 ) 10/06/2025 12:38 PM EST Body Mass Index 36.84 10/06/2025 12:38 PM EST Plan of Treatment Upcoming Encounters Date Type Department Care Team (Late st Contact Info) Description 11/10/2025 11:00 AM EST Office Visit Adult Medicine [address] [phone] Nader Cueto PA [address] [place] [address] 03/02/2026 9:30 AM EDT Office Visit Adult [address] [phone] Lu Chavez MD [address] [place] [address] 06/27/2026 8:20 AM EDT Consult Gastroenterology - [address] [phone] Erika Story NP [address] [address] Health Maintenance Due Date Last Done Comments Diabetes: Annual Foot Exam 1972 Diabetes: Annual Retina Eye Exam 1972 Colorectal Cancer Screening: Stool Based Tests (FOBT/FIT) 10/06/2022 HIV Screening 10/06/2022 Social Influencers of Health Screening 10/06/2022 Depression Screening 10/28/2024 Influenza Vaccine (#1) 2025 07/11/2009 Pneumococcal Vaccine: 50+ Years (1 of 2 - PCV) 10/27/2025 Postponed from 1981 (Patient Refused) Diabetes: Blood Sugar Control Test (HGBA1C) 02/01/2026 08/03/2025, 05/12/2025, 01/20/2025, Additional history exists Diabetes: Annual Urine Albumin-Creatinine Ratio (uACR) 05/05/2026 05/05/2025 Diabetes: Annual GFR (Glomerular Filtration Rate) 08/26/2026 08/26/2025, 01/20/2025, 09/28/2024, Additional history exists Hypertension/CHF/CAD Annual BMP Blood Test 08/26/2026 08/26/2025, 01/20/2025, 09/28/2024, Additional history exists Breast Cancer Screening 02/10/2027 02/10/2025 Cholesterol Screening (Lipid Panel) 08/03/2030 08/03/2025, 01/20/2025, 09/28/2024, Additional history exists DTaP,Tdap,and Td Vaccines (2 - Td or Tdap) 01/27/2035 01/27/2025 RSV Immunization Adult Patients (1 - 1-dose 75+ series) 2037 Hepatitis C Screening Completed 04/15/2014 Zoster Vaccines Completed 07/17/2025, 05/13/2025 COVID-19 Vaccine Discontinued HIB Vaccines Aged Out No longer eligi ble based on patient's age to complete this topic HPV Vaccines Aged Out No longer eligi ble based on patient's age to complete this topic Hepatitis A Vaccines Aged Out No long er eligible based on patient's age to complete this topic Hepatitis B Vaccines Aged Out No long er eligible based on patient's age to complete this topic IPV Vaccines Aged Out No longer eligi ble based on patient's age to complete this topic MMR Vaccines Aged Out No longer eligi ble based on patient's age to complete this topic Meningococcal ACWY Vaccine Aged Out N o longer eligible based on patient's age to complete this topic Meningococcal B Vaccine Aged Out No l onger eligible based on patient's age to complete this topic RSV Immunization Patients Under 20 months Aged Out No longer eligible based on patient's age to complete this topic Varicella Vaccines Aged Out No longer eligible based on patient's age to complete this topic Procedures Procedure Name Priority Date/Time Associated Diagnosis Comments LIRIANO URINE CULTURE TUBE Routine 08/30/2025 8:34 AM EST Dysuria CLOSTRIDIUM DIFFICILE TOXIN Routine 08/30/2025 8:32 AM EST Diarrhea of infectious origin CBC WITH AUTO DIFFERENTIAL Routine 08/26/2025 10:16 AM EDT Multifocal pneumonia CBC AND DIFFERENTIAL Routine 08/26/2025 10:16 AM EDT Multifocal pneumonia BASIC METABOLIC PANEL Routine 08/26/2025 10:16 AM EDT Multifocal pneumonia XR CHEST 2 VIEWS Routine 08/26/2025 10:0 2 AM EDT Multifocal pneumonia Acute hypoxemic respiratory failure (CMS/HCC V24, CMS/[facility] V28) HEMOGLOBIN A1C Routine 08/03/2025 9:46 AM EDT Type 2 diabetes mellitus without complication, without long-term current use of insulin (CMS/HCC V24, CMS/HCC V28) LIPID PANEL WITH REFLEX TO DIRECT LDL Routine 08/03/2025 9:46 AM EDT Hypercholesterolemi a MICROALBUMIN CREATININE URINE RATIO Routine 05/05/2025 9:01 AM EDT Type 2 diabetes mellitus without complication, without long-term current use of insulin (CMS/[facility] V24, CMS/HCC V28) MG MAMMO DIGITAL SCREENING W DYLAN BILAT Routine 02/10/2025 3:09 PM EDT Screening mammogram for breast cancer HM HEPATITIS C SCREENING Routine 04/15/2014 from Last 3 Months or Most Recently Relevant to Health Maintenance Results * Liriano urine culture tube (08/30/2025 8:34 AM EST) Extra Tube Hold for add-ons. 08/30/2025 11:01 AM EST [facility] Comment:Auto resulted. Urine Urine specimen obtained by clean catch procedure / Unknown Non-blood Collection / Unknown 08/30/2025 8:34 AM EST 08/30/2025 8:34 AM EST Lu Chavez MD LAB URINE ORDERABLES Final Resul t Performing Organization Address [facility]/ZIP Co de Phone Number [facility] [address] [place] [address], [place] [phone] * Clostridium difficile toxin (08/30/2025 8:32 AM EST) Pathologist [facility] Clostridium difficile GDH Antigen Negative Negative 08/30/2025 11:22 AM EST [facility] C difficile Toxins A+B, EIA Negative Negative 08/30/2025 11:22 AM EST [facility] Comment:NEGATIVE FOR TOXIN P RODUCING CLOSTRIDIOIDES DIFFICILE, NO ADDITIONAL TESTING IS NECESSARY. Stool Rectum structure / Unknown Non-blood Collection / Unknown 08/30/2025 8:32 AM EST 08/30/2025 8:32 AM EST Lu Chavez MD LAB MICROBIOLOGY - GENERAL ORDER FEROZ Final Result Performing Organization Address [facility]/ZIP Co de Phone Number [facility] [address] [place] [address], [place] [phone] * (ABNORMAL) CBC auto differential (08/26/2025 10:16 AM EDT) WBC 8.7 4.8 - 10.8 K/mcL LAB HEMETOLOGY METHOD 08/26/2025 12:24 PM EDT [facility] RBC 4.70 3.80 - 4.80 M/mcL LAB HEMETOLOGY METHOD 08/26/2025 12:24 PM EDT [facility] Hemoglobin 13.3 11.5 - 16.0 g/dL LAB HEMETOLOGY METHOD [facility] Hematocrit 42.1 35.0 - 47.0 % LAB HEMETOLOGY METHOD 08/26/2025 12:24 PM [facility] MCV 89.8 79.0 - 98.0 FL LAB HEMETOLOGY METHOD 08/26/2025 12:24 PM [facility] MCH 28.4 27.0 - 32.0 pcg LAB HEMETOLOGY METHOD 08/26/2025 12:24 PM [facility] MCHC 31.6(L) 32.0 - 37.0 g/dL LAB HEMETOLOGY METHOD 08/26/2025 12:24 PM [facility] RDW 13.8 11.0 - 15.0 % LAB HEMETOLOGY METHOD 08/26/2025 12:24 PM [facility] Platelets 286 130 - 400 K/mcL LAB HEMETOLOGY METHOD 08/26/2025 12:24 PM [facility] MPV 10.6 7.0 - 11.0 FL LAB HEMETOLOGY METHOD 08/26/2025 12:24 PM [facility] NRBC 0.0 <1.0 % LAB HEMETOLOGY METHOD 08/26/2025 12:24 PM [facility] NRBC Absolute 0.00 <0.10 K/mcL LAB HEMETOLOGY METHOD 08/26/2025 12:24 PM [facility] Neutrophils Relative 54.0 % LAB HEMETOLOGY METHOD 08/26/2025 12:24 PM [facility] Lymphocytes Relative 32.8 % LAB HEMETOLOGY METHOD 08/26/2025 12:24 PM [facility] Monocytes Relative 8.8 % LAB HEMETOLOGY METHOD 08/26/2025 12:24 PM [facility] Eosinophils Relative 3.3 % LAB HEMETOLOGY METHOD 08/26/2025 12:24 PM EDT [facility] Basophils Relative 0.9 % LAB HEMETOLOGY METHOD 08/26/2025 12:24 PM EDT [facility] Immature Granulocytes Relative 0.2 % LAB HEMETOLOGY METHOD 08/26/2025 12:24 PM EDT [facility] Neutrophils Absolute 4.68 1.50 - 7.00 K/mcL LAB HEMETOLOGY METHOD 08/26/2025 12:24 PM EDT [facility] Lymphocytes Absolute 2.85 1.00 - 5.00 K/mcL LAB HEMETOLOGY METHOD 08/26/2025 12:24 PM EDT [facility] Monocytes Absolute 0.76 0.20 - 1.00 K/mcL LAB HEMETOLOGY METHOD 08/26/2025 12:24 PM EDT [facility] Eosinophils Absolute 0.29 0.00 - 0.50 K/mcL LAB HEMETOLOGY METHOD 08/26/2025 12:24 PM EDT [facility] Basophils Absolute 0.08 0.00 - 0.20 K/mcL LAB HEMETOLOGY METHOD 08/26/2025 12:24 PM EDT [facility] Immature Granulocytes Absolute 0.02 0.00 - 0.03 K/mcL LAB HEMETOLOGY METHOD 08/26/2025 12:24 PM T [facility] Blood Venous blood specimen / Unknown Venipuncture / Unknown 08/26/2025 10:16 AM EDT 08/26/2025 10:16 AM EDT us Lu Chavez MD LAB BLOOD ORDERABLES Final Resul t [facility] [address] [place] [address], * (ABNORMAL) Basic metabolic panel (08/26/2025 10:16 AM EDT) Sodium 137 133 - 145 mmol/L LAB CHEMISTRY METHOD 08/26/2025 1:14 PM [facility] Potassium 4.5 3.5 - 5.5 mmol/L LAB CHEMISTRY METHOD 08/26/2025 1:14 PM [facility] Comment:Hemolysis present Chloride 105 96 - 110 mmol/L LAB CHEMISTRY METHOD 08/26/2025 1:14 PM [facility] CO2 23 21 - 32 mmol/L LAB CHEMISTRY METHOD 08/26/2025 1:14 PM [facility] Anion Gap 9 3 - 11 LAB CHEMISTRY METHOD 08/26/2025 1:14 PM [facility] Glucose 141(H) 70 - 100 mg/dL LAB CHEMISTRY METHOD 08/26/2025 1:14 PM [facility] BUN 16 5 - 25 mg/dL LAB CHEMISTRY METHOD 08/26/2025 1:14 PM [facility] Creatinine 0.66 0.50 - 1.10 mg/dL LAB CHEMISTRY METHOD 08/26/2025 1:14 PM [facility] eGFR 99 >=60 mL/min/1. 73m2 LAB CHEMISTRY METHOD 08/26/2025 1:14 PM [facility] Comment:Calculation based on the Chronic Kidney Disease Epidemiology Collaboration (CKD-EPI) equation refit without adjustment for race. BUN/Creatinine Ratio 24.2 LAB CHEMISTRY METHOD 08/26/2025 1:14 PM [facility] Calcium 9.4 8.5 - 10.5 mg/dL LAB CHEMISTRY METHOD 08/26/2025 1:14 PM [facility] Blood Venous blood specimen / Unknown Venipuncture / Unknown 08/26/2025 10:16 AM EDT 08/26/2025 10:16 AM EDT us Lu Chavez MD LAB BLOOD ORDERABLES Final Resul t [facility] [address] [place] [address], * XR Chest 2 Views (08/26/2025 10:02 AM EDT) Anatomical Region Laterality Modality Body Radiographic Gaby ging 08/26/2025 10:2 6 AM EDT Impressions 08/30/2025 10:23 AM EST No acute pulmonary pathology. -------- FINAL REPORT -------- Dictated By: Bethany Akhtar Dictated Date: 08/26/2025 11:26 ET Assigned Physician: Bethany Akhtar Reviewed and Electronically Signed By: Bethany Akhtar Signed Date: 08/30/2025 10:23 ET Workstation ID: [id number] Transcribed By: Self Edit Transcribed Date: 08/26/2025 14:37 ET Narrative 08/30/2025 10:23 AM EST CHEST, TWO VIEWS HISTORY: Repeat imaging for follow-up on multifocal pneumonia for resolution. TECHNIQUE: Frontal and lateral views of the chest. PRIOR: CT chest 07/28/2025. AP chest 07/28/2025. Chest x-ray 10/23/2016. FINDINGS: The lungs are clear. No pleural effusion is seen. No pneumothorax is seen. The cardiac diameter is within normal limits. No acute or aggressive appearing bony abnormalities are seen. There is mild curvature and degenerative change of the spine. Procedure Note Bethany Akhtar MD - 08/30/2025 CHEST, TWO VIEWS HISTORY: Repeat imaging for follow-up on multifocal pneumonia forresolution. TECHNIQUE: Frontal and lateral views of the chest. PRIOR: CT chest 07/28/2025. AP chest 07/28/2025. Chest x-ray 10/23/2016. FINDINGS: The lungs are clear. No pleural effusion is seen. No pneumothorax is seen. The cardiac diameter is within normal limits. No acute or aggressive appearing bony abnormalities are seen. There is mild curvature and degenerative change of the spine. IMPRESSION: No acute pulmonary pathology. -------- FINAL REPORT -------- Dictated By: Bethany Akhtar Dictated Date: 08/26/2025 11:26 ET Assigned Physician: Bethany Akhtar Reviewed and Electronically Signed By: Bethany Akhtar Signed Date: 08/30/2025 10:23 ET Workstation ID: [id number] Transcribed By: Self Edit Transcribed Date: 08/26/2025 14:37 ET us Lu Chavez MD IMG XR PROCEDURES Final Result * (ABNORMAL) Lipid panel with reflex to direct LDL (08/03/2025 9:46 AM EDT) Cholesterol 152 0 - 200 mg/dL LAB CHEMISTRY METHOD 08/03/2025 12:58 PM EDT [facility] Triglycerides 196(H) 0 - 150 mg/dL LAB CHEMISTRY METHOD 08/03/2025 12:58 PM EDT [facility] HDL 41 >=40 mg/dL LAB CHEMISTRY METHOD 08/03/2025 12:58 PM EDT [facility] LDL Calculated 72 0 - 100 mg/dL LAB CHEMISTRY METHOD 08/03/2025 12:58 PM EDT [facility] Comment:Estimated LDL Calcul ated using equation: Total cholesterol - HDL cholesterol - (Triglycerides/5) VLDL Cholesterol Rony 39.2 mg/dL LAB CHEMISTRY METHOD 08/03/2025 12:58 PM EDT [facility] Non HDL Chol. (LDL+VLDL) 111 <145 mg/dL LAB CHEMISTRY METHOD 08/03/2025 12:58 PM EDT [facility] Chol/HDL Ratio 3.7 0.0 - 4.4 LAB CHEMISTRY METHOD 08/03/2025 12:58 PM EDT [facility] Blood Venous blood specimen / Unknown Venipuncture / Unknown 08/03/2025 9:46 AM EDT 08/03/2025 9:46 AM EDT us Nader CAMARGO LAB BLOOD ORDERABLES Final Res ult [facility] [address] [place] [address], * Hemoglobin A1c (08/03/2025 9:46 AM EDT) Hemoglobin A1C 6.3 <6.5 % LAB CHEMISTRY METHOD 08/03/2025 1:42 PM EDT [facility] Mean Bld Glu Estim. 134 mg/dL LAB CHEMISTRY METHOD 08/03/2025 1:42 PM EDT [facility] Blood Venous blood specimen / Unknown Venipuncture / Unknown 08/03/2025 9:46 AM EDT 08/03/2025 9:46 AM EDT us Nader CAMARGO LAB BLOOD ORDERABLES Final Res ult Performing Organization Address City/[facility]/ZIP Co de Phone Number [facility] [address] [place] [address], [place] [phone] * Microalbumin creatinine urine ratio (05/05/2025 9:01 AM EDT) Pathologist [facility] Creatinine, Urine 174.0 mg/dL LAB CHEMISTRY METHOD 05/05/2025 12:54 PM EDT [facility] Microalb, Ur 12.7 0.0 - 29.0 mg/L LAB CHEMISTRY METHOD 05/05/2025 12:54 PM EDT [facility] Microalb/Creat Ratio 7 <30 mg/g creat LAB CHEMISTRY METHOD 05/05/2025 12:54 PM EDT [facility] Urine Urine specimen obtained by clean catch procedure / Unknown Non-blood Collection / Unknown 05/05/2025 9:01 AM EDT 05/05/2025 9:01 AM EDT us Nader CAMARGO LAB URINE ORDERABLES Final Res ult [facility] [address] [place] [address], [place] [phone] * MG Mammo Digital Screening w Dylan bilat (02/10/2025 3:09 PM EDT) Anatomical Region Laterality Modality Breast Bilateral Mammography 02/11/2025 12:5 3 PM EDT Impressions 02/11/2025 1:01 PM EDT No mammographic evidence of malignancy. No suspicious interval change. A negative mammogram in the presence of a clinically suspicious palpable abnormality does not preclude the possibility of malignancy or alter the indications for biopsy. ASSESSMENT: BI-RADS 2: BENIGN RECOMMENDATION(S): 1: Routine screening mammogram BILATERAL in 1 year. [facility] [address] [place], [address] -------- FINAL REPORT -------- Dictated By: Brooks Kimble Dictated Date: 02/11/2025 12:53 ET Assigned Physician: Brooks Kimble Reviewed and Electronically Signed By: Brooks Kimble Signed Date: 02/11/2025 13:01 ET Workstation ID: [id number] Transcribed By: Self Edit Transcribed Date: 02/11/2025 12:53 ET Narrative 02/11/2025 1:01 PM EDT EXAM: SCREENING MAMMOGRAPHY, BILATERAL HISTORY: SCREENING. No additional history. COMPARISON: 09/11/13 TECHNIQUE: Synthesized CC and MLO projections of each breast. Tomosynthesis of each breast in the CC and MLO projections. ADDITIONAL IMAGING: None Computer-aided detection was employed with the iCAD [employer]uru[employer] AI 3-D. TISSUE DENSITY: The breasts are heterogeneously dense, which may obscure small masses. (BI-RADS category C) FINDINGS: RIGHT BREAST: No suspicious mass. No suspicious calcification. No distortion. Coarse probably dystrophic calcifications 8 cm behind the right nipple and within a low axillary lymph node again demonstrated. LEFT BREAST: No suspicious mass. No suspicious calcification. No distortion. No additional suspicious left breast findings Procedure Note Brooks Kimble MD - 02/11/2025 EXAM: SCREENING MAMMOGRAPHY, BILATERAL HISTORY: SCREENING. No additional history. COMPARISON: 09/11/13 TECHNIQUE: Synthesized CC and MLO projections of each breast.Tomosynthesis of each breast in the CC and MLO projections. ADDITIONAL IMAGING: None Computer-aided detection was employed with the iCAD [employer]Found AI 3-D. TISSUE DENSITY: The breasts are heterogeneously dense, which may obscuresmall masses. (BI-RADS category C) FINDINGS: RIGHT BREAST: No suspicious mass. No suspicious calcification. No distortion. Coarseprobably dystrophic calcifications 8 cm behind the right nipple and withina low axillary lymph node again demonstrated. LEFT BREAST: No suspicious mass. No suspicious calcification. No distortion. Noadditional suspicious left breast findings IMPRESSION: No mammographic evidence of malignancy. No suspicious interval change. A negative mammogram in the presence of a clinically suspicious palpableabnormality does not preclude the possibility of malignancy or alter theindications for biopsy. ASSESSMENT: BI-RADS 2: BENIGN RECOMMENDATION(S): 1: Routine screening mammogram BILATERAL in 1 year. [facility] [address], [address] -------- FINAL REPORT -------- Dictated By: Brooks Kimble Dictated Date: 02/11/2025 12:53 ET Assigned Physician: Brooks Kimble Reviewed and Electronically Signed By: Brooks Kimble Signed Date: 02/11/2025 13:01 ET Workstation ID: [id number] Transcribed By: Self Edit Transcribed Date: 02/11/2025 12:53 ET Nader CAMARGO IMG BI PROCEDURES Final Result * Hepatitis C Screening (04/15/2014) Hepatitis C Screening Abstracted Historical Provider HEALTH MAINTENANCE Final Result from Last 3 Months or Most Recently Relevant to Health Maintenance Insurance [facility] Care Teams Drawbridge Tender Relationship Specialty Start Date End Date Lu Chavez MD [address] [place] [phone] PCP - General Internal Medicine 06/06/22
== END 2025-10-13 15:58 | disposition home or self-care (01) ==
LOC: HO.HWS 15:03
PROVIDERS: PCP Internal Medicine; Visit Provider Advanced Practice Midwife
DX: Z01.419 Encounter for gynecological examination (general) (routine) without abnormal findings (principal); R21 Rash and other nonspecific skin eruption
CPT/HCPCS: 99386; 99459

== ENCOUNTER 2025-10-13 15:03 | Outpatient (REF) | payer OTHER, SELFPAY ==
[2025-10-14 01:30] LABS: Bacterial Vaginosis PCR NEGATIVE (Negative); Candida Group PCR NOT DETECTED (Not Detect); Candida glab krusei PCR NOT DETECTED (Not Detect); Trichomonas vaginalis PCR NOT DETECTED (Not Detect)
== END 2025-10-13 15:04 | disposition home or self-care (01) ==
LOC: HO.LNP 15:03
PROVIDERS: PCP Internal Medicine; Visit Provider Advanced Practice Midwife
DX: Z01.419 Encounter for gynecological examination (general) (routine) without abnormal findings (principal); R21 Rash and other nonspecific skin eruption; Z20.2 Contact with and (suspected) exposure to infections with a predominantly sexual mode of transmission; Z79.82 Long term (current) use of aspirin
CPT/HCPCS: 81515